=== PATIENT | male | born 1935 | race Caucasian/White ===

== ENCOUNTER 2018-04-16 11:30 | Inpatient (IN) ==
[2018-04-16 12:35] LABS: Bilirubin,Urine Negative (Negative); Blood,Urine Negative (Negative); Clarity,Urine Clear (Clear); Color,Urine Yellow (Yellow); Glucose,Urine (UA) Normal (Normal); Ketones,Urine Negative (Negative); Leukocyte Esterase,Urine Negative (Negative); Nitrite,Urine Negative (Negative); Protein,Urine Negative (Neg-Trace); Specific Gravity,Urine 1.009 (1.010-1.025); Urobilinogen,Urine Normal (Normal)
[2018-04-16 12:42] LABS: Basophils % 0.5 %; Eosinophils # 0.6 K/mcL (0.0-0.6); Eosinophils % 10.1 %; Hematocrit 41.2 % (37.5-50.1); Hemoglobin 13.7 g/dL (12.9-16.9); Immature Granulocytes % 0.2 % (0-4); Lymphocytes # 1.2 K/mcL (0.6-4.6); Lymphocytes % 20.5 %; Mean Corpuscular HGB Conc 33.3 g/dL (31.6-35.5); Mean Corpuscular Hemoglobin 30.1 pg (28.0-33.3); Mean Corpuscular Volume 90.5 fL (83.0-100.0); Monocytes # 0.5 K/mcL (0.0-1.3); Monocytes % 8.5 %; Neutrophils # 3.4 K/mcL (1.6-8.9); Platelet Count 177 K/mcL (140-400); Red Blood Count 4.55 M/mcL (4.19-5.50); Red Cell Distribution Width 12.8 % (11.5-14.5); Segmented Neutrophils % 60.2 %
[2018-04-16 13:00] LABS: Alanine Aminotransferase 15 Units/L (7-52); Albumin 4.4 g/dL (3.5-5.7); Albumin/Globulin Ratio 1.8 (1.1-2.2); Alkaline Phosphatase 40 Units/L (34-104); Aspartate Amino Transferase 19 Units/L (13-39); BUN/Creatinine Ratio 13 (6-26); Bilirubin,Direct 0.1 mg/dL (0.0-0.2); Bilirubin,Indirect 0.4 mg/dL (0.0-1.2); Bilirubin,Total 0.5 mg/dL (0.3-1.0); Blood Urea Nitrogen 15 mg/dL (8-23); Calcium 9.5 mg/dL (8.6-10.3); Carbon Dioxide 28 mEq/L (23-29); Chloride 105 mEq/L (98-107); Globulin 2.5 g/dL (2.4-3.5); Glucose 126 mg/dL (70-105); Osmolality,Calculated 288 (280-300); Sodium 138 mEq/L (136-145); Total Protein 6.9 g/dL (6.4-8.9); eGFR For Non-African Americans 58 (> 60)
[2018-04-16 13:11] LABS: Lipase 835 Units/L (11-82)
[2018-04-16] MEDS ORDERED: *HR* FentaNYL (PF) 100 MCG/2 ML VIAL IVP ONE (13:35)
[2018-04-16] MEDS ORDERED: Ondansetron 4 MG/2 ML VIAL IVP ONE (13:36)
[2018-04-16] MEDS ORDERED: 0.9 % Sodium Chloride 1,000 ML IVC ONE (13:36)
--- NOTE | 2018-04-16 14:39 | Emergency Department Note ---
Disposition Clinical Impression: Pancreatitis Disposition: Admitted As Inpatient Condition: Fair Referrals: Mayito Serrano MD [Primary Care Provider] - Forms: ED Satisfaction Letter, Work/School Release General Adult HPI - General Chief complaint: ED Abdominal Pain Stated complaint: "pancreaititis" Time Seen by Provider: 04/16/18 12:22 Source: patient Mode of arrival: ambulatory Limitations: no limitations Nursing Notes Reviewed: Yes Vital Signs Reviewed: Yes - History of Present Illness HPI Narrative: 82-year-old male presents to the emergency room for abdominal pain. Patient was just admitted recently for pancreatitis. Patient had undergone abdominal MRI that did not reveal any obstructive lesions but more so just findings consistent with acute pancreatitis. Patient had been taking tramadol and when necessary Vicodin that he was getting from his . He states his pain is gotten worse. He is able to drink liquids and eat some food but has a decreased appetite. He denies any diarrhea but does admit to some constipation from the narcotic medication that is been taking for pain. He denies fevers. No other complaints at this time. Pain Scale: 7 - Related Data Home Medications Medication Instructions Recorded Confirmed ALPRAZolam [Xanax 0.5 MG Tablet] 0.25 mg PO 3XW PRN 04/03/18 04/03/18 Amlodipine Besylate 40 mg PO DAILY 04/03/18 Aspirin [Lo-Dose Aspirin EC] 81 mg PO QPM 04/03/18 04/03/18 Atenolol [Tenormin] 50 mg PO BID 04/03/18 04/03/18 Atorvastatin [Lipitor] 40 mg PO DAILY 04/03/18 04/03/18 Gabapentin [Neurontin] 400 mg PO HS 04/03/18 04/03/18 Loratadine [Claritin] 10 mg PO DAILY 04/03/18 04/03/18 Losartan Potassium [Cozaar] 50 mg PO DAILY 04/03/18 04/03/18 Omeprazole [PriLOSEC] 40 mg PO DAILY 04/03/18 04/03/18 hydroCHLOROthiazide 25 mg PO DAILY 04/03/18 04/03/18 [Hydrochlorothiazide] Allergies Allergy/AdvReac Type Severity Reaction Status Date / Time No Known Allergies Allergy Verified 04/02/18 23:37 All systems ED: reviewed and negative except as stated. Constitutional: Reports: as per HPI. Denies: fever Eyes: Reports: as per HPI ENT ED: Reports: as per HPI Cardiovascular: Reports: as per HPI. Denies: chest pain Respiratory: Denies: cough Gastrointestinal: Reports: abdominal pain, constipation Genitourinary: Reports: as per HPI Musculoskeletal: Reports: as per HPI Integumentary: Reports: as per HPI Neurological: Reports: as per HPI Psychiatric: Reports: as per HPI Endocrine: Reports: as per HPI Hematological/Lymphatic: Reports: as per HPI Allergic/Immunologic: Reports: as per HPI Past Medical History - Past Medical History Medical history: Reports: hyperlipidemia, hypertension, myocardial infarction Psychiatric history: Reports: no psych history - Social History Smoking Status: Never smoker Smokeless Tobacco Status: No Alcohol use: Reports: none Drug use: Reports: none Physical Exam - General General appearance: alert - Head Head exam: atraumatic, normocephalic - Eye Eye exam: Present: normal appearance - Neck Neck exam: Present: normal inspection - Chest Chest inspection: Present: normal inspection - Respiratory Respiratory exam: Present: normal lung sounds bilaterally - Cardiovascular Cardiovascular exam: Present: regular rate, normal rhythm, normal heart sounds - Abdominal Exam Abdominal exam: Present: soft, tenderness (Patient has tenderness in the epigastric region. Positive for guarding.) - Extremities Exam Extremities exam: Present: normal inspection - Expanded Lower Extremity Exam Hip/Pelvis exam: Present: normal inspection - Neurological Exam Neurological exam: Present: alert, oriented X3 - Psychiatric Psychiatric exam: Present: normal affect - Skin Skin exam: Present: warm, dry, intact Course Vital Signs Temperature 97.5 F L 04/16/18 11:41 Pulse Rate 56 04/16/18 11:41 Respiratory Rate 18 04/16/18 11:41 Blood Pressure 178/83 04/16/18 11:41 O2 Sat by Pulse Oximetry 100 04/16/18 11:41 Temperature 97.5 F L 04/16/18 12:10 Pulse Rate 52 04/16/18 13:52 Respiratory Rate 18 04/16/18 12:10 Blood Pressure 137/77 04/16/18 13:52 O2 Sat by Pulse Oximetry 98 04/16/18 13:52 Oxygen Delivery Oxygen Delivery Room Air Medical Decision Making - MDM Narrative Medical decision making narrative: I reviewed the patient's recent CT imaging and abdominal MRI. - Medical Records Medical records reviewed: Yes I reviewed the patient's medical records. - Lab Data Lab results reviewed: Yes I reviewed the patient's lab results. Result diagrams: 04/16/18 12:25 04/16/18 12:25 Lab Results 04/16/18 04/16/18 04/16/18 Range/Units 12:10 12:25 12:25 WBC 5.7 (4.3-11.1) K/mcL RBC 4.55 (4.19-5.50) M/mcL Hgb 13.7 (12.9-16.9) g/dL Hct 41.2 (37.5-50.1) % MCV 90.5 (83.0-100.0) fL MCH 30.1 (28.0-33.3) pg MCHC 33.3 (31.6-35.5) g/dL RDW 12.8 (11.5-14.5) % Plt Count 177 (140-400) K/mcL MPV 10.0 (9.4-12.4) fL Immature Gran % 0.2 (0-4) % Seg Neutrophils % 60.2 % Lymphocytes % 20.5 % Monocytes % 8.5 % Eosinophils % 10.1 % Basophils % 0.5 % Neutrophils # 3.4 (1.6-8.9) K/mcL Lymphocytes # 1.2 (0.6-4.6) K/mcL Monocytes # 0.5 (0.0-1.3) K/mcL Eosinophils # 0.6 (0.0-0.6) K/mcL Basophils # 0.0 (0.0-0.2) K/mcL Sodium 138 (136-145) mEq/L Potassium 4.0 (3.5-5.1) mEq/L Chloride 105 (98-107) mEq/L Carbon Dioxide 28 (23-29) mEq/L BUN 15 (8-23) mg/dL Creatinine 1.20 (0.70-1.30) mg/dL Est GFR ( Amer) > 60 (> 60) Est GFR (Non-Af Amer) 58 L (> 60) BUN/Creatinine Ratio 13 (6-26) Glucose 126 H (70-105) mg/dL Calculated Osmolality 288 (280-300) Calcium 9.5 (8.6-10.3) mg/dL Total Bilirubin 0.5 (0.3-1.0) mg/dL Direct Bilirubin 0.1 (0.0-0.2) mg/dL Indirect Bilirubin 0.4 (0.0-1.2) mg/dL AST 19 (13-39) Units/L ALT 15 (7-52) Units/L Alkaline Phosphatase 40 (34-104) Units/L Serum Total Protein 6.9 (6.4-8.9) g/dL Albumin 4.4 (3.5-5.7) g/dL Globulin 2.5 (2.4-3.5) g/dL Albumin/Globulin Ratio 1.8 (1.1-2.2) Lipase 835 H (11-82) Units/L Urine Color Yellow (Yellow) Urine Clarity Clear (Clear) Urine pH 6.0 (5.0-8.0) pH Units Ur Specific [place] 1.009 L (1.010-1.025) Urine Protein Negative (Neg-Trace) mg/dL Urine Glucose (UA) Normal (Normal) mg/dL Urine Ketones Negative (Negative) mg/dL Urine Blood Negative (Negative) Urine Nitrite Negative (Negative) Urine Bilirubin Negative (Negative) Urine Urobilinogen Normal (Normal) mg/dL Ur Leukocyte Esterase Negative (Negative) Ur Culture Indicated? NO (NO)
--- NOTE | 2018-04-16 15:58 | Event Note ---
Date of Encounter: 04/16/18 Time of Encounter: 16:30 to serve as attestation pending completion of resident H&P documentation I examined this patient and my medical decision-making was reviewed with the Resident Physician Dr Mccord 04/16/18. I agree with the documented findings, disposition and treatment plan as described except to the extent set forth below. Mr Nova has pmhx HTN, HLD, CAD, aortic root dilatation and recent dc 04/06/18 for first episode acute pancreatitis. He presented to ED today with continued abd pain refractory to outpt pain medication and decreased appetite. awake, family at bedside. comfortable appearing. epigastric pain with radiation to ruq and luq, no radiation to back. no nausea or emesis. has been able to eat/drink. dneies fevers, chills. had no bm for 3 days and then had one yesterday that was brown and soft. 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
--- NOTE | 2018-04-16 16:06 | Internal Med History&Physical ---
Date of Encounter: 04/16/18 Time of Encounter: 16:06 Internal Medicine - H&P: HPI History of present illness: Mr. Nova is a 82 year old male Past Med Surg Social Fam HX - Past Medical History Medical history: hyperlipidemia, hypertension, myocardial infarction Psychiatric history: no psych history - Social History Smoking Status: Never smoker Smokeless Tobacco Status: No Alcohol use: none Drug use: none - Family History Mother Hx Family Cardiac Disorders: Yes Father Hx Family Cardiac Disorders: Yes Hx Family Neurologic Disorders: Yes (stroke) Internal Medicine - H&P: Meds ALPRAZolam [Xanax 0.5 MG Tablet] 0.25 mg PO 3XW PRN 04/03/18 [History] Amlodipine Besylate 40 mg PO DAILY 04/03/18 [History] Aspirin [Lo-Dose Aspirin EC] 81 mg PO QPM 04/03/18 [History] Atenolol [Tenormin] 50 mg PO BID 04/03/18 [History] Atorvastatin [Lipitor] 40 mg PO DAILY 04/03/18 [History] Gabapentin [Neurontin] 400 mg PO HS 04/03/18 [History] Loratadine [Claritin] 10 mg PO DAILY 04/03/18 [History] Losartan Potassium [Cozaar] 50 mg PO DAILY 04/03/18 [History] Omeprazole [PriLOSEC] 40 mg PO DAILY 04/03/18 [History] hydroCHLOROthiazide [Hydrochlorothiazide] 25 mg PO DAILY 04/03/18 [History] Allergy/AdvReac Type Severity Reaction Status Date / Time No Known Allergies Allergy Verified 04/02/18 23:37 All Systems PM: A 10-system review of systems was performed and is negative for pertinent findings except as documented above in the HPI. - Constitutional Vitals: Temp Pulse Resp BP Pulse Ox 97.5 F L 51 18 125/71 100 04/16/18 12:10 04/16/18 15:29 04/16/18 12:10 04/16/18 15:29 04/16/18 15:29 Internal Med - H&P Results - Labs CBC & Chem 7: 04/16/18 12:25 04/16/18 12:25 Labs: Short CBC 04/16/18 Range/Units 12:25 WBC 5.7 (4.3-11.1) K/mcL Hgb 13.7 (12.9-16.9) g/dL Hct 41.2 (37.5-50.1) % Plt Count 177 (140-400) K/mcL Neutrophils # 3.4 (1.6-8.9) K/mcL BMP 04/16/18 12:25 Sodium 138 Potassium 4.0 Chloride 105 Carbon Dioxide 28 BUN 15 Creatinine 1.20 Glucose 126 H Calcium 9.5 Liver Function 04/16/18 Range/Units 12:25 Total Bilirubin 0.5 (0.3-1.0) mg/dL Direct Bilirubin 0.1 (0.0-0.2) mg/dL AST 19 (13-39) Units/L ALT 15 (7-52) Units/L Alkaline Phosphatase 40 (34-104) Units/L Albumin 4.4 (3.5-5.7) g/dL Urine 04/16/18 Range/Units 12:10 Urine Color Yellow (Yellow) Urine Clarity Clear (Clear) Urine pH 6.0 (5.0-8.0) pH Units Ur Specific [place] 1.009 L (1.010-1.025) Urine Protein Negative (Neg-Trace) mg/dL Urine Glucose (UA) Normal (Normal) mg/dL - Time Spent With Patient Total time spent is greater than 50% in coordination of care (as documented) at patient's floor/unit and/or counseling patient:
[2018-04-16] MEDS ORDERED: OXYCODONE Oral CONC 10 MG/0.5 ML ORAL.SYG SL ONE (16:35)
--- NOTE | 2018-04-16 16:36 | Internal Med History&Physical ---
<Marija Oseguera - Last Filed: 04/16/18 16:52> Date of Encounter: 04/16/18 Internal Medicine - H&P: HPI History of present illness: Mr. Nova is a 82 year old male Past Med Surg Social Fam HX - Past Surgical History Surgical History: cholecystectomy Internal Medicine - H&P: Meds ALPRAZolam [Xanax 0.5 MG Tablet] 0.5 mg PO PRN PRN 04/03/18 [History] Amlodipine Besylate 40 mg PO DAILY 04/03/18 [History] Aspirin [Lo-Dose Aspirin EC] 81 mg PO QPM 04/03/18 [History] Atenolol [Tenormin] 50 mg PO BID 04/03/18 [History] Atorvastatin [Lipitor] 40 mg PO DAILY 04/03/18 [History] Gabapentin [Neurontin] 400 mg PO HS 04/03/18 [History] Loratadine [Claritin] 10 mg PO DAILY 04/03/18 [History] Losartan Potassium [Cozaar] 100 mg PO DAILY 04/03/18 [History] Allergy/AdvReac Type Severity Reaction Status Date / Time No Known Allergies Allergy Verified 04/02/18 23:37 All Systems PM: A 10-system review of systems was performed and is negative for pertinent findings except as documented above in the HPI. - Constitutional Vitals: Temp Pulse Resp BP Pulse Ox 97.5 F L 51 18 125/71 100 04/16/18 12:10 04/16/18 15:29 04/16/18 12:10 04/16/18 15:29 04/16/18 15:29 Internal Med - H&P Results - Labs CBC & Chem 7: 04/16/18 12:25 04/16/18 12:25 Labs: Short CBC 04/16/18 Range/Units 12:25 WBC 5.7 (4.3-11.1) K/mcL Hgb 13.7 (12.9-16.9) g/dL Hct 41.2 (37.5-50.1) % Plt Count 177 (140-400) K/mcL Neutrophils # 3.4 (1.6-8.9) K/mcL BMP 04/16/18 12:25 Sodium 138 Potassium 4.0 Chloride 105 Carbon Dioxide 28 BUN 15 Creatinine 1.20 Glucose 126 H Calcium 9.5 Liver Function 04/16/18 Range/Units 12:25 Total Bilirubin 0.5 (0.3-1.0) mg/dL Direct Bilirubin 0.1 (0.0-0.2) mg/dL AST 19 (13-39) Units/L ALT 15 (7-52) Units/L Alkaline Phosphatase 40 (34-104) Units/L Albumin 4.4 (3.5-5.7) g/dL Urine 04/16/18 Range/Units 12:10 Urine Color Yellow (Yellow) Urine Clarity Clear (Clear) Urine pH 6.0 (5.0-8.0) pH Units Ur Specific [place] 1.009 L (1.010-1.025) Urine Protein Negative (Neg-Trace) mg/dL Urine Glucose (UA) Normal (Normal) mg/dL - Time Spent With Patient Total time spent is greater than 50% in coordination of care (as documented) at patient's floor/unit and/or counseling patient: - Attending Attestation I examined this patient and my medical decision-making was reviewed with the Resident Physician Dr Mccord 04/16/18. I agree with the documented findings, disposition and treatment plan as described except to the extent set forth below. Mr Nova has pmhx HTN, HLD, CAD, aortic root dilatation and recent dc 04/06/18 for first episode acute pancreatitis. He presented to ED today with continued abd pain refractory to outpt pain medication and decreased appetite. awake, family at bedside. comfortable appearing. epigastric pain with radiation to ruq and luq, no radiation to back. no nausea or emesis. has been able to eat/drink. dneies fevers, chills. had no bm for 3 days and then had one yesterday that was brown and soft. 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 and no fluid collection or stones/obstruction He denied etoh use, tgs were in 120-130s, celine was neg and GI followed -IVF boluses, npo except meds, prn pain control, stop home hctz, repeat imaging and will consider GI consult pending work up Constipation with recent opiate use- no nausea/emesis and able to eat and drink -bowel regimen HTN- hold home hctz and cont remainder home regimen, monitor bps and will adjust as needed, prn pain control CAD- cont home asa, statin, bb, arb further diagnoses and plan as noted by resident <Aga Mccord N - Last Filed: 04/16/18 18:29> Date of Encounter: 04/16/18 Time of Encounter: 16:36 Internal Medicine - H&P: HPI Chief complaint: Abdominal pain Admitted From: Emergency Dept History of present illness: Mr. Nova is a 82 year old male with a history of hypertension, hyperlipidemia, and coronary artery disease who presented to the ED complaining of abdominal pain. Patient was recently hospitalized for similar complaints, with discharge from [facility] on 04/06/2018. During that admission, he was found to have acute pancreatitis secondary to an undetermined etiology. Patient states that since going home, his pain has persisted, despite opioid analgesics. He rates his current pain to be 8/10, and states that the pain only improved to 7/10 after receiving analgesics in the ED. Patient reports that his pain is normally about 8/10 in severity. He states that his pain is mainly epigastric in location, with lateral radiation. He denies any aggravating or alleviating factors. Patient also reports recent constipation secondary to use of opioid analgesics. He did have an bowel movement while in the ED, with his last bowel movement having been approximately 3 days prior. He states that he did not have to take a laxative in order to this bowel movement today. He denies any nausea or vomiting. Patient has been able to tolerate some oral intake while at home. He denies any fevers, chills, or other systemic signs of infection. Review systems is otherwise negative. Past Med Surg Social Fam HX - Past Medical History Medical history: hyperlipidemia, hypertension, myocardial infarction Psychiatric history: no psych history - Social History Smoking Status: Never smoker Smokeless Tobacco Status: No Alcohol use: none Drug use: none - Family History Mother Hx Family Cardiac Disorders: Yes Father Hx Family Cardiac Disorders: Yes Hx Family Neurologic Disorders: Yes (stroke) All Systems PM: A 10-system review of systems was performed and is negative for pertinent findings except as documented above in the HPI. - Constitutional Constitutional: anorexia, no chills, no fever(s) - Cardiovascular Cardiovascular ROS IM: no chest pain, no diaphoresis, no dyspnea - Respiratory Respiratory: no cough, no dyspnea - Gastrointestinal Gastrointestinal: abdominal pain, change in stool character, constipation, no diarrhea, no nausea, no vomiting - Constitutional Vitals: Temp Pulse Resp BP Pulse Ox 97.5 F L 51 18 125/71 100 04/16/18 12:10 04/16/18 15:29 04/16/18 12:10 04/16/18 15:29 04/16/18 15:29 Exam: GENERAL: Pleasant adult male in mild distress secondary to abdominal pain. HEENT: Atraumatic and normocephalic. CARDIOVASCULAR: Regular rate and rhythm. S1 and S2 present. No murmurs, gallops, or rubs. RESPIRATORY: Clear to auscultation bilaterally. Chest rises and falls symmetrically with respiration. No accessory muscle use noted. GASTROINTESTINAL: Active bowel sounds 4 quadrants. Abdomen is soft and nondistended. Patient is tender to palpation in epigastric area. EXTREMITIES: No clubbing, cyanosis, or edema. SKIN: Warm, dry, and intact. NEUROLOGIC: Alert and oriented 3. Patient is cooperative with exam and answers questions appropriately. No apparent focal deficits. PSYCHIATRIC: Appropriate mood and affect. Internal Med - H&P Results - Labs CBC & Chem 7: 04/16/18 12:25 04/16/18 12:25 Labs: Short CBC 04/16/18 Range/Units 12:25 WBC 5.7 (4.3-11.1) K/mcL Hgb 13.7 (12.9-16.9) g/dL Hct 41.2 (37.5-50.1) % Plt Count 177 (140-400) K/mcL Neutrophils # 3.4 (1.6-8.9) K/mcL BMP 04/16/18 12:25 Sodium 138 Potassium 4.0 Chloride 105 Carbon Dioxide 28 BUN 15 Creatinine 1.20 Glucose 126 H Calcium 9.5 Liver Function 04/16/18 Range/Units 12:25 Total Bilirubin 0.5 (0.3-1.0) mg/dL Direct Bilirubin 0.1 (0.0-0.2) mg/dL AST 19 (13-39) Units/L ALT 15 (7-52) Units/L Alkaline Phosphatase 40 (34-104) Units/L Albumin 4.4 (3.5-5.7) g/dL Urine 04/16/18 Range/Units 12:10 Urine Color Yellow (Yellow) Urine Clarity Clear (Clear) Urine pH 6.0 (5.0-8.0) pH Units Ur Specific [place] 1.009 L (1.010-1.025) Urine Protein Negative (Neg-Trace) mg/dL Urine Glucose (UA) Normal (Normal) mg/dL - Assessment and plan (1) Pancreatitis Current Visit: Yes Status: Acute Assessment and plan: Patient was recently discharged from the hospital for similar complaints. CT of the abdomen and pelvis performed on 04/03/2018 demonstrated mild pancreatic inflammatory stranding, suggesting acute interstitial edematous pancreatitis. At that time, no drainable fluid collection or duct dilatation was noted. Subsequent MRI of the abdomen demonstrated diffuse irregularity of the pancreatic duct likely related to pancreatitis. No evidence of pancreatic ductal obstruction or stone was noted. Patient was also noted to have multiple small cysts measuring 2-4 mm throughout the pancreas commuting to multiple side branch ducts suggesting numerous pancreatic sidebranch IPMNs. - Repeat CT abdomen/pelvis pending - IVF: 1L LR over 2 hours, then maintenance fluids of 125mL/hr - NPO except medications - Pain control with opioid analgesics - Consider GI consult based on results of repeat CT imaging studies - Obtain CMP, amylase, and lipase with morning laboratory studies Qualifiers: Chronicity: acute Pancreatitis type: unspecified pancreatitis type Acute pancreatitis complication: unspecified Qualified Code(s): K85.90 - Acute pancreatitis without necrosis or infection, unspecified (2) Constipation due to opioid therapy Current Visit: Yes Status: Acute Assessment and plan: - Colace 100mg BID - Will add stimulant laxative if patient has recurrent constipation (3) Hypertension Current Visit: No Status: Chronic Assessment and plan: - Continue home medications of losartan, amlodipine, and atenolol. Qualifiers: Hypertension type: unspecified Qualified Code(s): I10 - Essential (primary) hypertension (4) CAD (coronary artery disease) Current Visit: Yes Status: Acute Assessment and plan: - Continue home medications of aspirin, atorvastatin, atenolol, and losartan. Qualifiers: Coronary Disease-Associated Artery/Lesion type: unspecified vessel or lesion type [place] vs. transplanted heart: [place] heart Associated angina: angina p resence unspecified Qualified Code(s): I25.10 - Atherosclerotic heart disease of [place] coronary artery without angina pectoris (5) Hyperlipidemia Current Visit: No Status: Chronic Assessment and plan: - Continue atorvastatin 40mg daily. Qualifiers: Hyperlipidemia type: unspecified Qualified Code(s): E78.5 - Hyperlipidemia, unspecified (6) DVT prophylaxis Current Visit: No Status: Acute Assessment and plan: - Heparin 5000units SQ - Time Spent With Patient Total time spent is greater than 50% in coordination of care (as documented) at patient's floor/unit and/or counseling patient:
[2018-04-16] MEDS ORDERED: Isovue-370 500 ML BOTTLE IVP ONE (17:42)
[2018-04-16] MEDS ORDERED: Ringers Solution, Lactated 1,000 ML IVC ONE (18:10)
[2018-04-16] MEDS ORDERED: Acetaminophen 325 MG TABLET PO PRN (18:12)
[2018-04-16] MEDS ORDERED: Naloxone 0.4 MG/ML INJ IVP PRN (18:12)
[2018-04-16] MEDS ORDERED: *HR* OxyCODONE Immed Rel 5 MG TABLET PO PRN (18:14)
[2018-04-16] MEDS ORDERED: *HR* OxyCODONE Immed Rel 15 MG TABLET PO PRN (19:31)
[2018-04-16] MEDS ORDERED: *HR* OxyCODONE Immed Rel 15 MG TABLET PO SCH (20:00)
[2018-04-16] MEDS: *HR* Heparin 5,000 UNIT/ML VIAL SQ SCH (20:58)
[2018-04-16] MEDS: Ringers Solution, Lactated 1,000 ML IVC SCH (21:00)
[2018-04-16] MEDS ORDERED: Melatonin 3 MG TABLET PO ONE (23:40)
[2018-04-16] MEDS ORDERED: Acetaminophen IV 500 MG/50 ML INFUS..BTL IVPB ONE (23:54)
[2018-04-17] MEDS ORDERED: OXYCODONE Oral CONC 10 MG/0.5 ML ORAL.SYG SL ONE (03:27)
[2018-04-17] MEDS: Ringers Solution, Lactated 1,000 ML IVC SCH ×3 (04:40→22:18)
[2018-04-17 04:59] LABS: Basophils % 0.4 %; Eosinophils # 0.6 K/mcL (0.0-0.6); Eosinophils % 10.9 %; Hemoglobin 11.6 g/dL (12.9-16.9); Immature Granulocytes % 0.2 % (0-4); Lymphocytes # 1.6 K/mcL (0.6-4.6); Lymphocytes % 28.6 %; Mean Corpuscular HGB Conc 34.1 g/dL (31.6-35.5); Mean Corpuscular Hemoglobin 30.4 pg (28.0-33.3); Mean Corpuscular Volume 89.2 fL (83.0-100.0); Mean Platelet Volume 10.3 fL (9.4-12.4); Monocytes # 0.5 K/mcL (0.0-1.3); Neutrophils # 2.9 K/mcL (1.6-8.9); Platelet Count 123 K/mcL (140-400); Red Blood Count 3.81 M/mcL (4.19-5.50); Red Cell Distribution Width 12.9 % (11.5-14.5); Segmented Neutrophils % 51.9 %
[2018-04-17] MEDS: *HR* Heparin 5,000 UNIT/ML VIAL SQ SCH ×3 (05:03→21:08)
[2018-04-17] MEDS ORDERED: Ertapenem 1,000 MG in 0.9 % Sodium Chloride Mini Bag 100 ML IVPB SCH ×2 (06:00→09:00)
[2018-04-17 08:46] LABS: Alanine Aminotransferase 12 Units/L (7-52); Albumin 3.8 g/dL (3.5-5.7); Albumin/Globulin Ratio 1.8 (1.1-2.2); Alkaline Phosphatase 35 Units/L (34-104); Amylase 80 Units/L (29-103); Aspartate Amino Transferase 16 Units/L (13-39); BUN/Creatinine Ratio 12 (6-26); Bilirubin,Total 0.5 mg/dL (0.3-1.0); Blood Urea Nitrogen 12 mg/dL (8-23); Calcium 8.8 mg/dL (8.6-10.3); Carbon Dioxide 28 mEq/L (23-29); Chloride 108 mEq/L (98-107); Globulin 2.1 g/dL (2.4-3.5); Glucose 94 mg/dL (70-105); Lipase 487 Units/L (11-82); Osmolality,Calculated 292 (280-300); Potassium 3.8 mEq/L (3.5-5.1); Sodium 141 mEq/L (136-145); Total Protein 5.9 g/dL (6.4-8.9); eGFR For Non-African Americans > 60 (> 60)
[2018-04-17] MEDS ORDERED: AMLODIPINE BESYLATE PO SCH (09:00)
--- NOTE | 2018-04-17 09:08 | Internal Med Progress Note ---
<Marija Oseguera - Last Filed: 04/17/18 13:42> Hospitalist Progress Note - Encounter Date of Encounter: 04/17/18 - Exam Vitals: Temp Pulse Resp BP Pulse Ox 97.5 F L 48 16 176/83 97 04/17/18 06:49 04/17/18 06:49 04/17/18 06:49 04/17/18 06:49 04/17/18 06:49 - Assessment and Plan (1) Pancreatitis Current Visit: Yes Status: Acute (2) Hypertension Current Visit: Yes Status: Chronic (3) Hyperlipidemia Current Visit: Yes Status: Chronic (4) DVT prophylaxis Current Visit: Yes Status: Acute (5) Constipation due to opioid therapy Current Visit: Yes Status: Acute (6) CAD (coronary artery disease) Current Visit: Yes Status: Acute - Time Spent with Patient Total time spent is greater than 50% in coordination of care (as documented) at patient's floor/unit and/or counseling patient: Internal Medicine: Result - Labs CBC & Chem 7: 04/17/18 04:09 04/17/18 04:09 Labs: Short CBC 04/17/18 Range/Units 04:09 WBC 5.6 (4.3-11.1) K/mcL Hgb 11.6 L D (12.9-16.9) g/dL Hct 34.0 L (37.5-50.1) % Plt Count 123 L (140-400) K/mcL Neutrophils # 2.9 (1.6-8.9) K/mcL BMP 04/17/18 04:09 Sodium 141 Potassium 3.8 Chloride 108 H Carbon Dioxide 28 BUN 12 Creatinine 0.99 Glucose 94 Calcium 8.8 Liver Function 04/17/18 Range/Units 04:09 Total Bilirubin 0.5 (0.3-1.0) mg/dL AST 16 (13-39) Units/L ALT 12 (7-52) Units/L Alkaline Phosphatase 35 (34-104) Units/L Albumin 3.8 (3.5-5.7) g/dL - Impressions Impressions Abdomen/Pelvis CT 04/16/18 17:42 IMPRESSION: 1. Developing hypoattenuation pancreatic head concerning for products of necrosis following acute pancreatitis. Developing pseudocysts is a consideration as well. 2. Persistent findings of acute pancreatitis predominantly about the pancreatic head and neck. 3. Mild intra and extra extrahepatic bile duct dilatation status post cholecystectomy typical of reservoir effect. 4. Diverticulosis coli without CT evidence of acute diverticulitis. D/ / Tk Forrest / Tk Forrest Interpreting Provider: Tk Forrest Consult Discharge Plan - Plan Referrals: Allie Raymond MD [Partnered Physician] - 05/23/18 9:50 am Marianne Mccurdy MD [Partnered Physician] - 05/31/18 9:10 am Mayito Serrano MD [Primary Care Provider] - 04/22/18 1:30 pm () West Thompson MD [Partnered Physician] - 05/13/18 3:30 pm - Attending Attestation The history, physical exam, and medical decision making was performed by medical student Barby either while I was physically present and actively involved or I personally re-performed the exam and medical decision making. I have verified the accuracy of the medical student's documentation with regards to the history, physical exam findings, and medical decision making. Mr Nova has pmhx HTN, HLD, CAD, aortic root dilatation and recent dc 04/06/18 for first episode acute pancreatitis. He presented to ED today with continued abd pain refractory to outpt pain me dication and decreased appetite. awake, had pain consistently throughout the night despite meds. epigastric region and cont radiation to bl UQs. no cp, sob, fevers or chills. bm yesterday, no diarrhea, hematochezia, melena. no nausea or emesis. updated to CT results and plan. no family at bedside. 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 and no fluid collection or stones/obstruction He denied etoh use, tgs were in 120-130s, celine was neg and GI followed -s/p IVF boluses, cont MIVFs -CT scan with findings concerning for necrosis vs developing pseudocyst -lipase down trending now 400s -cont npo except meds, increase prn pain control, GI consultation - rec is for outpt EUS, clears when pain improves, if pain worsens at that time would consider ngt-our team also spoke with GI whom noted that he does not require abx- stop ertapenem Constipation with recent opiate use, last bm 04/16- -colace with opiates and laxative prn Drop in Hgb to 11.6- is s/p aggressive IVFs and without active bleeding at this time, cont to monitor, hemodynamically stable HTN- hold home hctz due to pancreatitis and home atenolol due to bradycardia, cont remainder home regimen, monitor bps and will adjust as needed, prn pain control with dosing increased for uncontrolled pain CAD- cont home asa, statin, arb, and BB as bp permits <Omar Dior - Last Filed: 04/17/18 14:45> Hospitalist Progress Note - Encounter Date of Encounter: 04/17/18 Time of Encounter: 08:00 - Subjective Interval History: Mr. Nova is a 82yo male with a history of HTN, HLD, CAD, aortic root dilation, and recent acute pancreatitis requiring hospitalization, who presented to the ED on 04/16/18 with abdominal pain refractory to OTC pain medication and decreased appetite. He came to the ED on 04/04/18 complaining of similar epigastric pain, and was diagnosed with acute pancreatitis and discharged on 04/06/18 because of improving pain and pancreatic enzymes. He is a never smoker and denies alcohol use. He was an IV bolus of normal 0.9% saline and started on IV lactated ringers solution and IV ertapenem. He was given fentanyl and oxycodone for his abdominal pain. CT of the abdomin/pelvis was ordered He was seen at bedside today. Appearing comfortable. He complained he wasn't able to sleep very well last night because of his abdominal pain. He is slightly nauseous today and rates the pain as 6/10 today and localizes most of the pain as in the epigastric area w/ lateral radiation. He denies any fever, chills, vomiting, diarrhea, dysuria, hematuria, or hematochezia. He states he has urinated a few times, he admits to a bowel movement in the ED, but denies any bowel movements since his admission. - Exam Vitals: Temp Pulse Resp BP Pulse Ox 97.5 F L 48 16 176/83 97 04/17/18 06:49 04/17/18 06:49 04/17/18 06:49 04/17/18 06:49 04/17/18 06:49 Exam: General: Well-appearing male lying comfortably in bed in no acute distress. Skin: Warm and supple. Head: Normocephalic, atrauma EENT: Moist mucous membranes. No conjunctivae pallor. Neck: No JVD. Trachea midline. Chest: CTA bilaterally. No wheezes, rhonchi, or rales. Normal thoracic expansion. Heart: Normal S1 & S2; rhythmic. No rubs, gallops, or murmurs. Abdomen: Moderate epigastric tenderness with guarding. No tenderness in other quadrants. No distension. No hepatomegaly or splenomegaly. Active bowel sounds x4. Extremities: No clubbing, cyanosis or edema. No calf tenderness. Normal distal pulses. Normal capillary refill Neurological: AAOx3. No focal deficits. - Assessment and Plan (1) Acute pancreatitis Current Visit: Yes Status: Acute Assessment and Plan: Pt with history of recent bout of acute pancreatitis presents with epigastric pain and nausea Pt states pain has improved, but still says pain is 6/10 and localized to the epigastrium. He is afebrile and hemodynamically stable Lipase has decreased from yesterday (835--> 487), amylase is normal (80) Pt meets 1 point of Ball criteria. (LDH not measured) CT abdomen/pelvis showed hypoattenuation of the pancreatic head concerning for products of necrosis following acute pancreatitis possible pseudocysts is a consideration as well. Persistent findings of acute pancreatitis predominantly about the pancreatic head and neck. Gastroenterology has been consulted, any recommendations would be appreciated Continue IV LR D/c ertapenem Continue PRN Oxycodone for abdominal pain. Continue NPO diet GI recommends EUS follow-up outpatient once acute inflammation resolves (2) Hypertension Current Visit: Yes Status: Chronic Assessment and Plan: - Severe abdominal pain likely contributes to increase in BP - Continue home meds of losartan - Atenolol held d/t bradycardia (3) Hyperlipidemia Current Visit: Yes Status: Chronic Assessment and Plan: - Continue atorvastrin 40mg daily (4) Constipation due to opioid therapy Current Visit: Yes Status: Acute Assessment and Plan: - Has not had bowel movement since admission - Colace 100mg BID - Will add stimulant laxative if patient has recurrent constipation (5) CAD (coronary artery disease) Current Visit: Yes Status: Acute Assessment and Plan: - Continue home medications of aspirin, atorvastatin, and losartan. - Atenolol held d/t bradycardia (6) DVT prophylaxis Current Visit: Yes Status: Acute Assessment and Plan: SQ heparin given DVT Prophylaxis: SQ heparin - Time Spent with Patient Total time spent is greater than 50% in coordination of care (as documented) at patient's floor/unit and/or counseling patient: Internal Medicine: Result - Labs CBC & Chem 7: 04/17/18 04:09 04/17/18 04:09 Labs: Short CBC 04/16/18 04/17/18 Range/Units 12:25 04:09 WBC 5.7 5.6 (4.3-11.1) K/mcL Hgb 13.7 11.6 L D (12.9-16.9) g/dL Hct 41.2 34.0 L (37.5-50.1) % Plt Count 177 123 L (140-400) K/mcL Neutrophils # 3.4 2.9 (1.6-8.9) K/mcL BMP 04/16/18 04/17/18 12:25 04:09 Sodium 138 141 Potassium 4.0 3.8 Chloride 105 108 H Carbon Dioxide 28 28 BUN 15 12 Creatinine 1.20 0.99 Glucose 126 H 94 Calcium 9.5 8.8 Liver Function 04/16/18 04/17/18 Range/Units 12:25 04:09 Total Bilirubin 0.5 0.5 (0.3-1.0) mg/dL Direct Bilirubin 0.1 (0.0-0.2) mg/dL AST 19 16 (13-39) Units/L ALT 15 12 (7-52) Units/L Alkaline Phosphatase 40 35 (34-104) Units/L Albumin 4.4 3.8 (3.5-5.7) g/dL Urine 04/16/18 Range/Units 12:10 Urine Color Yellow (Yellow) Urine Clarity Clear (Clear) Urine pH 6.0 (5.0-8.0) pH Units Ur Specific Archer 1.009 L (1.010-1.025) Urine Protein Negative (Neg-Trace) mg/dL Urine Glucose (UA) Normal (Normal) mg/dL - Impressions Impressions Abdomen/Pelvis CT 04/16/18 17:42 IMPRESSION: 1. Developing hypoattenuation pancreatic head concerning for products of necrosis following acute pancreatitis. Developing pseudocysts is a consideration as well. 2. Persistent findings of acute pancreatitis predominantly about the pancreatic head and neck. 3. Mild intra and extra extrahepatic bile duct dilatation status post cholecystectomy typical of reservoir effect. 4. Diverticulosis coli without CT evidence of acute diverticulitis. D/ / Tk Forrest / Tk Forrest Interpreting Provider: Tk Forrest ___ <Marija Oseguera - Last Filed: 04/17/18 13:42> (1) Pancreatitis Qualifiers: Chronicity: acute Pancreatitis type: unspecified pancreatitis type Acute pancreatitis complication: unspecified Qualified Code(s): K85.90 - Acute pancreatitis without necrosis or infection, unspecified (2) Hypertension Qualifiers: Hypertension type: unspecified Qualified Code(s): I10 - Essential (primary) hypertension (3) Hyperlipidemia Qualifiers: Hyperlipidemia type: unspecified Qualified Code(s): E78.5 - Hyperlipidemia, unspecified (6) CAD (coronary artery disease) Qualifiers: Coronary Disease-Associated Artery/Lesion type: unspecified vessel or lesion type [place] vs. transplanted heart: [place] heart Associated angina: angina presence unspecified Qualified Code(s): I25.10 - Atherosclerotic heart disease of [place] coronary artery without angina pectoris <Yasmeen-Omar Stapleton - Last Filed: 04/17/18 14:45> (1) Acute pancreatitis Qualifiers: Pancreatitis type: unspecified pancreatitis type Acute pancreatitis complication: no infection or necrosis Qualified Code(s): K85.90 - Acute pancreatitis without necrosis or infection, unspecified (2) Hypertension Qualifiers: Hypertension type: unspecified Qualified Code(s): I10 - Essential (primary) hypertension (3) Hyperlipidemia Qualifiers: Hyperlipidemia type: unspecified Qualified Code(s): E78.5 - Hyperlipidemia, unspecified (5) CAD (coronary artery disease) Qualifiers: Coronary Disease-Associated Artery/Lesion type: unspecified vessel or lesion type [place] vs. transplanted heart: [place] heart Associated angina: angina presence unspecified Qualified Code(s): I25.10 - Atherosclerotic heart disease of [place] coronary artery without angina pectoris
[2018-04-17] MEDS: Aspirin Enteric Coated 81 MG Tablet PO SCH (11:05)
[2018-04-17] MEDS ORDERED: *HR* OxyCODONE Immed Rel 15 MG TABLET PO PRN (11:44)
--- NOTE | 2018-04-17 13:07 | Gastroenterology Consult Note ---
<Neo Piper - Last Filed: 04/17/18 13:05> Date of Encounter: 04/17/18 Time of Encounter: 10:50 - Assessment and plan (1) Acute pancreatitis Current Visit: Yes Status: Acute Assessment and plan: On 04/04/2018 Triglycerides 127 , ionized calcium 1.21, IgG4 19, CESAR negative. CT A/P with hypoattenuation of pancreatic head concerning for approximately process versus developing pseudocyst, persistent findings of acute pancreatitis. Lipase 835 on admission and 487 today. Patient is not septic and WBC within normal limits. Plan for EUS as outpatient once inflammation resolved. Continue IV fluids, pain control, and anti-emetics. If pain improves can start clear liquid diet. If pain worsens he may require NG tube. Qualifiers: Pancreatitis type: unspecified pancreatitis type Acute pancreatitis complication: no infection or necrosis Qualified Code(s): K85.90 - Acute pancreatitis without necrosis or infection, unspecified - Time Spent With Patient Total time spent is greater than 50% in coordination of care (as documented) at patient's floor/unit and/or counseling patient: GI History of Present Illness - Data of Consult Patient: known to practice within the last 3 years Consult date: 04/17/18 Requesting Physician: Marija Oseguera - Consult Narrative Reason for consult: Pancreatic necrosis History of present illness: Mr. Nova is a 82 year old male with PMHx of HLD, HTN, [place], CAD who presented to the ED with c/o abdominal pain. Patient was recently hospitalized for similar complaints, with discharge from [facility] on 04/06/2018. During that admission, he was found to have acute pancreatitis secondary to an undetermined etiology. He denies any alcohol use. He is s/p cholecystectomy. Patient states that since going home, his pain has persisted, despite opioid analgesics. He states that his pain is mainly epigastric in location, with lateral radiation. He denies any aggravating or alleviating factors. Patient also reports recent constipation secondary to use of opioid analgesics. CT A/P with hypoattenuation of pancreatic head concerning for approximately process versus developing pseudocyst, persistent findings of acute pancreatitis. Lipase 835 on admission and 487 today. On 04/04/2018 Triglycerides 127 , ionized calcium 1.21, IgG4 19, CESAR negative. Procedures: Colonoscopy >10 years ago, normal per patient. NSAIDs: ASA Anticoagulation: None Past Med Surg Social Fam HX - Past Medical History Medical history: hyperlipidemia, hypertension, myocardial infarction Psychiatric history: no psych history - Past Surgical History Surgical History: cholecystectomy - Social History Smoking Status: Never smoker Smokeless Tobacco Status: No Alcohol use: none Drug use: none - Family History Father Hx Family Cardiac Disorders: Yes Hx Family Neurologic Disorders: Yes (stroke) Mother Hx Family Cardiac Disorders: Yes - Gastrointestinal Gastrointestinal: Present: as per HPI - Constitutional Constitutional: as per HPI - EENT Eyes: as per HPI Ears: Present: as per HPI Nose, mouth and throat: Present: as per HPI - Cardiovascular Cardiovascular ROS: Present: as per HPI - Respiratory Respiratory IM: Present: as per HPI - Genitourinary Genitourinary: Absent: change in color, Urinary frequency - Neurological ROS Neurological GI: Present: as per HPI - Hematologic/Lymphatic Hematologic/Lymphatic pediatric: Present: as per HPI - Musculoskeletal Musculoskeletal ROS GI: Present: as per HPI - Integumentary Integumentary GI: Present: as per HPI - Psychiatric ROS Psychiatric GI: Present: as per HPI - Endocrine Endocrine IM: Present: as per HPI - Constitutional Vitals: Temp Pulse Resp BP Pulse Ox 97.5 F L 48 16 176/83 97 04/17/18 06:49 04/17/18 06:49 04/17/18 06:49 04/17/18 06:49 04/17/18 06:49 General appearance: Present: cooperative, A&O X 3, no acute distress, answers questions appropriately - Head Head exam: Present: atraumatic, normocephalic - Eye Eye exam: Present: normal appearance, sclera anicteric - ENT ENT exam: Present: mucous membranes dry - Neck Neck exam general surgery: Present: normal inspection, trachea midline - Respiratory Respiratory exam: Present: CTAB. Absent: rales, rhonchi - Cardiovascular Cardiovascular exam: Present: RRR, +S1, +S2 - GI/Abdominal GI/Abdominal exam: Present: soft, tenderness (epigastric), no peritoneal signs. Absent: distended, firm, guarding - Rectal Rectal exam: Present: deferred - Extremities Exam Extremities exam: Present: warm - Neurological Exam Neurological exam: Present: no focal deficits - Psychiatric Psychiatric exam: Present: normal affect, normal mood - Skin Skin exam: Present: dry, intact, normal color, warm Results - Labs CBC & Chem 7: 04/17/18 04:09 04/17/18 04:09 Labs: Last Result Calcium 8.8 mg/dL (8.6-10.3) 04/17/18 04:09 Entire Visit Hgb 11.6 g/dL (12.9-16.9) L D 04/17/18 04:09 Hct 34.0 % (37.5-50.1) L 04/17/18 04:09 Total Bilirubin 0.5 mg/dL (0.3-1.0) 04/17/18 04:09 AST 16 Units/L (13-39) 04/17/18 04:09 ALT 12 Units/L (7-52) 04/17/18 04:09 Amylase 80 Units/L (29-103) 04/17/18 04:09 Lipase 487 Units/L (11-82) H 04/17/18 04:09 - Impressions Impressions Abdomen/Pelvis CT 04/16/18 17:42 IMPRESSION: 1. Developing hypoattenuation pancreatic head concerning for products of necrosis following acute pancreatitis. Developing pseudocysts is a consideration as well. 2. Persistent findings of acute pancreatitis predominantly about the pancreatic head and neck. 3. Mild intra and extra extrahepatic bile duct dilatation status post cholecystectomy typical of reservoir effect. 4. Diverticulosis coli without CT evidence of acute diverticulitis. D/ / Tk Forrest / Tk Forrest Interpreting Provider: Tk Forrest Consult Discharge Plan - Plan Referrals: Allie Raymond MD [Partnered Physician] - 05/23/18 9:50 am Marianne Mccurdy MD [Partnered Physician] - 05/31/18 9:10 am Mayito Serrano MD [Primary Care Provider] - 04/22/18 1:30 pm () West Thompson MD [Partnered Physician] - 05/13/18 3:30 pm <West Thompson - Last Filed: 04/17/18 14:38> Date of Encounter: 04/17/18 Time of Encounter: 14:00 - Time Spent With Patient Total time spent is greater than 50% in coordination of care (as documented) at patient's floor/unit and/or counseling patient: GI History of Present Illness - Data of Consult Requesting Physician: Marija Oseguera - Consult Narrative History of present illness: Mr. Nova is a 82 year old male - Constitutional Vitals: Temp Pulse Resp BP Pulse Ox 98.0 F 61 16 169/75 96 04/17/18 14:15 04/17/18 14:15 04/17/18 14:15 04/17/18 14:15 04/17/18 14:15 Results - Labs CBC & Chem 7: 04/17/18 04:09 04/17/18 04:09 Labs: Last Result Calcium 8.8 mg/dL (8.6-10.3) 04/17/18 04:09 Entire Visit Hgb 11.6 g/dL (12.9-16.9) L D 04/17/18 04:09 Hct 34.0 % (37.5-50.1) L 04/17/18 04:09 Total Bilirubin 0.5 mg/dL (0.3-1.0) 04/17/18 04:09 AST 16 Units/L (13-39) 04/17/18 04:09 ALT 12 Units/L (7-52) 04/17/18 04:09 Amylase 80 Units/L (29-103) 04/17/18 04:09 Lipase 487 Units/L (11-82) H 04/17/18 04:09 - Impressions Impressions Abdomen/Pelvis CT 04/16/18 17:42 IMPRESSION: 1. Developing hypoattenuation pancreatic head concerning for products of necrosis following acute pancreatitis. Developing pseudocysts is a consideration as well. 2. Persistent findings of acute pancreatitis predominantly about the pancreatic head and neck. 3. Mild intra and extra extrahepatic bile duct dilatation status post cholecystectomy typical of reservoir effect. 4. Diverticulosis coli without CT evidence of acute diverticulitis. D/ / Tk Forrest / Tk Forrest Interpreting Provider: Tk Forrest - Attending Attestation I have personally performed a face to face evaluation on this patient. I have reviewed and agree with the care plan. History and Exam by me shows: Patient seen at the bedside. Complaining of abdominal pain. On examination: Mid epigastric tenderness. Assessment: acute pancreatitis, CT scan reviewed head of the pancreas possible pseudocyst versus early necrosis. Recommendation: Nothing by mouth IV fluid pain management will start him on IV Dilaudid as hydrocodone is not covering his pain
[2018-04-17] MEDS: OXYCODONE Oral CONC 10 MG/0.5 ML ORAL.SYG SL ONE ×2 (13:10→13:32)
[2018-04-17] MEDS: *HR* OxyCODONE Immed Rel 5 MG TABLET PO SCH ×2 (13:36→13:56)
[2018-04-17] MEDS: *HR* HYDROmorphone (PF) 1 MG/ML SYRINGE IVP PRN ×2 (13:38→18:22)
[2018-04-17] MEDS: Ondansetron 4 MG/2 ML VIAL IVP PRN (18:22)
[2018-04-17] MEDS ORDERED: Ondansetron 4 MG/2 ML VIAL IVP ONE (21:21)
[2018-04-18] MEDS: Ondansetron 4 MG/2 ML VIAL IVP PRN ×3 (02:11→23:06)
[2018-04-18] MEDS ORDERED: Acetaminophen IV 1,000 MG/100 ML INFUS..BTL IVPB ONE (02:36)
[2018-04-18] MEDS: *HR* Heparin 5,000 UNIT/ML VIAL SQ SCH ×3 (05:15→21:22)
[2018-04-18 05:53] LABS: Basophils % 0.2 %; Eosinophils % 0.2 %; Hematocrit 35.8 % (37.5-50.1); Hemoglobin 12.3 g/dL (12.9-16.9); Immature Granulocytes % 0.2 % (0-4); Lymphocytes # 0.6 K/mcL (0.6-4.6); Lymphocytes % 10.7 %; Mean Corpuscular HGB Conc 34.4 g/dL (31.6-35.5); Mean Corpuscular Hemoglobin 30.3 pg (28.0-33.3); Mean Corpuscular Volume 88.2 fL (83.0-100.0); Mean Platelet Volume 10.7 fL (9.4-12.4); Monocytes # 0.2 K/mcL (0.0-1.3); Neutrophils # 5.1 K/mcL (1.6-8.9); Platelet Count 132 K/mcL (140-400); Red Blood Count 4.06 M/mcL (4.19-5.50); Red Cell Distribution Width 12.6 % (11.5-14.5); Segmented Neutrophils % 85.7 %
[2018-04-18 06:07] LABS: Alanine Aminotransferase 11 Units/L (7-52); Albumin 3.8 g/dL (3.5-5.7); Albumin/Globulin Ratio 1.7 (1.1-2.2); Alkaline Phosphatase 37 Units/L (34-104); Amylase 57 Units/L (29-103); Aspartate Amino Transferase 17 Units/L (13-39); BUN/Creatinine Ratio 13 (6-26); Bilirubin,Total 0.4 mg/dL (0.3-1.0); Blood Urea Nitrogen 12 mg/dL (8-23); Calcium 8.9 mg/dL (8.6-10.3); Carbon Dioxide 23 mEq/L (23-29); Chloride 104 mEq/L (98-107); Globulin 2.3 g/dL (2.4-3.5); Glucose 115 mg/dL (70-105); Lipase 292 Units/L (11-82); Osmolality,Calculated 285 (280-300); Potassium 3.8 mEq/L (3.5-5.1); Sodium 137 mEq/L (136-145); Total Protein 6.1 g/dL (6.4-8.9); eGFR For Non-African Americans > 60 (> 60)
[2018-04-18] MEDS: Ringers Solution, Lactated 1,000 ML IVC SCH ×3 (06:27→23:12)
[2018-04-18] MEDS: Aspirin Enteric Coated 81 MG Tablet PO SCH (08:16)
--- NOTE | 2018-04-18 09:31 | Internal Med Progress Note ---
<Marija Oseguera - Last Filed: 04/18/18 13:43> Hospitalist Progress Note - Encounter Date of Encounter: 04/18/18 - Exam Vitals: Temp Pulse Resp BP Pulse Ox 98.3 F 76 16 181/94 95 04/18/18 10:36 04/18/18 10:36 04/18/18 10:36 04/18/18 10:36 04/18/18 10:36 - Assessment and Plan (1) Pancreatitis Current Visit: Yes Status: Acute (2) Hypertension Current Visit: Yes Status: Chronic (3) Hyperlipidemia Current Visit: Yes Status: Chronic (4) DVT prophylaxis Current Visit: Yes Status: Acute (5) Constipation due to opioid therapy Current Visit: Yes Status: Acute (6) CAD (coronary artery disease) Current Visit: Yes Status: Acute - Time Spent with Patient Total time spent is greater than 50% in coordination of care (as documented) at patient's floor/unit and/or counseling patient: Internal Medicine: Result - Labs CBC & Chem 7: 04/18/18 04:47 04/18/18 04:47 Labs: Short CBC 04/18/18 Range/Units 04:47 WBC 6.0 (4.3-11.1) K/mcL Hgb 12.3 L (12.9-16.9) g/dL Hct 35.8 L (37.5-50.1) % Plt Count 132 L (140-400) K/mcL Neutrophils # 5.1 (1.6-8.9) K/mcL BMP 04/18/18 04:47 Sodium 137 Potassium 3.8 Chloride 104 Carbon Dioxide 23 BUN 12 Creatinine 0.95 Glucose 115 H Calcium 8.9 Liver Function 04/18/18 Range/Units 04:47 Total Bilirubin 0.4 (0.3-1.0) mg/dL AST 17 (13-39) Units/L ALT 11 (7-52) Units/L Alkaline Phosphatase 37 (34-104) Units/L Albumin 3.8 (3.5-5.7) g/dL Consult Discharge Plan - Plan Referrals: Allie Raymond MD [Partnered Physician] - 05/23/18 9:50 am Marianne Mccurdy MD [Partnered Physician] - 05/31/18 9:10 am Mayito Serrano MD [Primary Care Provider] - 04/22/18 1:30 pm () West Thompson MD [Partnered Physician] - 05/13/18 3:30 pm - Attending Attestation I examined this patient and my medical decision-making was reviewed with the Resident Physician Dr Kelly. I agree with the documented findings, disposition and treatment plan as described except to the extent set forth below. Mr Nova is admitted with acute pancreatitis awake, dialudid has made him nauseaed, dizzy and overall uncomofrtable after two doses last night. pain now 4/10 and benefitting from tylenol. denies fevers, chills, no emesis. feeling hungry. 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 and no fluid collection or stones/obstruction He denied etoh use, tgs were in 120-130s, celine was neg and GI followed -s/p IVF boluses, cont MIVFs, may be able to down titrate soon -CT scan with findings concerning for necrosis vs developing pseudocyst -cont npo except meds,adjusted pain control today due to not tolerating dialudid as ordered by gi, -will fu gi recs today in regards to feeding/fluids GI consultation - rec per discussion with our team is for outpt EUS, does not require abx Constipation with recent opiate use, last bm 04/16- -colace with opiates and laxative prn Drop in Hgb to 11.6- is s/p aggressive IVFs and without active bleeding, now stable and uptrended, cont to monitor, hemodynamically stable HTN- cont arb, norvasc ordered, adjusting meds as needed, pain control CAD- cont home asa, statin, arb, and BB can be added back as HR permits further diagnoses and plan as noted by resident <Neo Kelly - Last Filed: 04/18/18 20:10> Hospitalist Progress Note - Encounter Date of Encounter: 04/18/18 Time of Encounter: 09:00 - Subjective Interval History: The patient is resting in bed at time of examination. He says that his pain was very poor overnight, however he did receive a dose of Dilaudid and since that time he has been very nauseated and been feeling very dizzy. Overall he is just not feeling well. He has not been able to tolerate his pain medications thus far. He says that Tylenol has been the most appropriate form thus far. He is not vomiting at this time. He has not had any bowel movements and he is passing gas. He has no other acute complaints today. - Exam Vitals: Temp Pulse Resp BP Pulse Ox 98.1 F 77 16 165/95 97 04/18/18 06:21 04/18/18 06:21 04/18/18 06:21 04/18/18 06:21 04/18/18 06:21 Exam: General: Well-appearing male lying comfortably in bed in no acute distress. Skin: Warm and supple. Head: Normocephalic, atrauma EENT: Moist mucous membranes. No conjunctivae pallor. Neck: No JVD. Trachea midline. Chest: CTA bilaterally. No wheezes, rhonchi, or rales. Normal thoracic expansion. Heart: Normal S1 & S2; rhythmic. No rubs, gallops, or murmurs. Abdomen: Moderate epigastric tenderness with guarding which is about the same as it was previously. No tenderness in other quadrants. No distension. No hepatomegaly or splenomegaly. Extremities: No clubbing, cyanosis or edema. No calf tenderness. Neurological: AAOx3. No focal deficits. - Assessment and Plan (1) Pancreatitis Current Visit: Yes Status: Acute Assessment and Plan: Acute on chronic pancreatitis, improving Clinically the patient does appear to be improving. His pain has improved drastically and his abdominal exam remains benign Vital signs remain stable, laboratory studies are unremarkable with the exception of his lipase which has decreased to 292 down from 487 On arrival, CT of the abdomen did demonstrate persistent acute findings of pancreatitis predominantly around the pancreatic head and neck with concern for developing pseudocyst versus necrosis GI is on board and is not concerned for necrosis at this time and has recommende d discontinuation of ertapenem Since discontinuing this medication the patient has continued to improve Plan Treat pain with Percocet as patient says Tylenol seems to help Continue IV fluids Advance diet to clear liquids per GI recommendation Continue to monitor abdominal exams Plan for outpatient EUS with GI (2) Hypertension Current Visit: Yes Status: Chronic Assessment and Plan: Patient has remained relatively hypertensive throughout this stay At first we considered that pain may be a primary cause of this hypertension His pain has however been treated at times with well-controlled pain, and his blood pressure is remained high We have continued his home Losartan but held atenolol due to bradycardia We will add amlodipine 5 mg today and monitor blood pressure (3) Hyperlipidemia Current Visit: Yes Status: Chronic Assessment and Plan: - Continue atorvastatin 40mg daily. (4) Constipation due to opioid therapy Current Visit: Yes Status: Acute Assessment and Plan: Suspected secondary to opiate-induced constipation Patient has been on Colace for bowel regimen thus far If he continues to have constipation I will add a stimulant-based laxative (5) CAD (coronary artery disease) Current Visit: Yes Status: Acute Assessment and Plan: - Continue home medications of aspirin, atorvastatin, and losartan. Atenolol has been held due to bradycardia DVT Prophylaxis: Subcutaneous heparin - Time Spent with Patient Total time spent is greater than 50% in coordination of care (as documented) at patient's floor/unit and/or counseling patient: Internal Medicine: Result - Labs CBC & Chem 7: 04/18/18 04:47 04/18/18 04:47 Labs: Short CBC 04/18/18 Range/Units 04:47 WBC 6.0 (4.3-11.1) K/mcL Hgb 12.3 L (12.9-16.9) g/dL Hct 35.8 L (37.5-50.1) % Plt Count 132 L (140-400) K/mcL Neutrophils # 5.1 (1.6-8.9) K/mcL BMP 04/18/18 04:47 Sodium 137 Potassium 3.8 Chloride 104 Carbon Dioxide 23 BUN 12 Creatinine 0.95 Glucose 115 H Calcium 8.9 Liver Function 04/18/18 Range/Units 04:47 Total Bilirubin 0.4 (0.3-1.0) mg/dL AST 17 (13-39) Units/L ALT 11 (7-52) Units/L Alkaline Phosphatase 37 (34-104) Units/L Albumin 3.8 (3.5-5.7) g/dL <Marija Oseguera - Last Filed: 04/18/18 13:43> (1) Pancreatitis Qualifiers: Chronicity: acute Pancreatitis type: unspecified pancreatitis type Acute p ancreatitis complication: unspecified Qualified Code(s): K85.90 - Acute pancreatitis without necrosis or infection, unspecified (2) Hypertension Qualifiers: Hypertension type: unspecified Qualified Code(s): I10 - Essential (primary) hypertension (3) Hyperlipidemia Qualifiers: Hyperlipidemia type: unspecified Qualified Code(s): E78.5 - Hyperlipidemia, unspecified (6) CAD (coronary artery disease) Qualifiers: Coronary Disease-Associated Artery/Lesion type: unspecified vessel or lesion type [place] vs. transplanted heart: [place] heart Associated angina: angina pr esence unspecified Qualified Code(s): I25.10 - Atherosclerotic heart disease of [place] coronary artery without angina pectoris <Neo Kelly - Last Filed: 04/18/18 20:10> (1) Pancreatitis Qualifiers: Chronicity: acute Pancreatitis type: unspecified pancreatitis type Acute pancreatitis complication: unspecified Qualified Code(s): K85.90 - Acute p ancreatitis without necrosis or infection, unspecified (2) Hypertension Qualifiers: Hypertension type: unspecified Qualified Code(s): I10 - Essential (primary) hypertension (3) Hyperlipidemia Qualifiers: Hyperlipidemia type: unspecified Qualified Code(s): E78.5 - Hyperlipidemia, unspecified (5) CAD (coronary artery disease) Qualifiers: Coronary Disease-Associated Artery/Lesion type: unspecified vessel or lesion type [place] vs. transplanted heart: [place] heart Associated angina: angina presence unspecified Qualified Code(s): I25.10 - Atherosclerotic heart disease of [place] coronary artery without angina pectoris
[2018-04-18] MEDS: amLODIPine 5 MG TABLET PO SCH (10:22)
[2018-04-18] MEDS: *HR* OxyCODONE/APAP 7.5/325 TABLET PO PRN (15:06)
[2018-04-18] MEDS: Acetaminophen 325 MG TABLET PO PRN (21:22)
[2018-04-18] MEDS ORDERED: Gabapentin 400 MG CAPSULE PO ONE (21:49)
[2018-04-19 02:55] LABS: Basophils % 0.3 %; Eosinophils # 0.3 K/mcL (0.0-0.6); Eosinophils % 5.3 %; Hematocrit 32.1 % (37.5-50.1); Hemoglobin 11.1 g/dL (12.9-16.9); Immature Granulocytes % 0.2 % (0-4); Lymphocytes # 1.2 K/mcL (0.6-4.6); Lymphocytes % 20.8 %; Mean Corpuscular HGB Conc 34.6 g/dL (31.6-35.5); Mean Corpuscular Hemoglobin 30.3 pg (28.0-33.3); Mean Corpuscular Volume 87.7 fL (83.0-100.0); Mean Platelet Volume 10.6 fL (9.4-12.4); Monocytes # 0.5 K/mcL (0.0-1.3); Monocytes % 8.9 %; Neutrophils # 3.8 K/mcL (1.6-8.9); Platelet Count 118 K/mcL (140-400); Red Blood Count 3.66 M/mcL (4.19-5.50); Segmented Neutrophils % 64.5 %
[2018-04-19 03:14] LABS: Alanine Aminotransferase 12 Units/L (7-52); Albumin 3.3 g/dL (3.5-5.7); Albumin/Globulin Ratio 1.8 (1.1-2.2); Alkaline Phosphatase 30 Units/L (34-104); Aspartate Amino Transferase 20 Units/L (13-39); BUN/Creatinine Ratio 14 (6-26); Bilirubin,Total 0.4 mg/dL (0.3-1.0); Blood Urea Nitrogen 12 mg/dL (8-23); Calcium 8.4 mg/dL (8.6-10.3); Carbon Dioxide 25 mEq/L (23-29); Chloride 106 mEq/L (98-107); Globulin 1.8 g/dL (2.4-3.5); Glucose 104 mg/dL (70-105); Osmolality,Calculated 288 (280-300); Potassium 3.4 mEq/L (3.5-5.1); Sodium 139 mEq/L (136-145); Total Protein 5.1 g/dL (6.4-8.9); eGFR For Non-African Americans > 60 (> 60)
[2018-04-19] MEDS: *HR* Heparin 5,000 UNIT/ML VIAL SQ SCH ×3 (05:28→21:01)
[2018-04-19] MEDS: Ringers Solution, Lactated 1,000 ML IVC SCH (07:03)
--- NOTE | 2018-04-19 08:24 | Internal Med Progress Note ---
<Marija Oseguera - Last Filed: 04/19/18 11:29> Hospitalist Progress Note - Encounter Date of Encounter: 04/19/18 - Exam Vitals: Temp Pulse Resp BP Pulse Ox 97.6 F 55 17 138/72 98 04/19/18 07:25 04/19/18 07:25 04/19/18 07:25 04/19/18 07:25 04/19/18 07:25 - Assessment and Plan (1) Pancreatitis Current Visit: Yes Status: Acute (2) Hypertension Current Visit: Yes Status: Chronic (3) Hyperlipidemia Current Visit: Yes Status: Chronic (4) Constipation due to opioid therapy Current Visit: Yes Status: Acute (5) CAD (coronary artery disease) Current Visit: Yes Status: Acute - Time Spent with Patient Total time spent is greater than 50% in coordination of care (as documented) at patient's floor/unit and/or counseling patient: Internal Medicine: Result - Labs CBC & Chem 7: 04/19/18 02:19 04/19/18 02:19 Labs: Short CBC 04/19/18 Range/Units 02:19 WBC 5.9 (4.3-11.1) K/mcL Hgb 11.1 L (12.9-16.9) g/dL Hct 32.1 L (37.5-50.1) % Plt Count 118 L (140-400) K/mcL Neutrophils # 3.8 (1.6-8.9) K/mcL BMP 04/19/18 02:19 Sodium 139 Potassium 3.4 L Chloride 106 Carbon Dioxide 25 BUN 12 Creatinine 0.86 Glucose 104 Calcium 8.4 L Liver Function 04/19/18 Range/Units 02:19 Total Bilirubin 0.4 (0.3-1.0) mg/dL AST 20 (13-39) Units/L ALT 12 (7-52) Units/L Alkaline Phosphatase 30 L (34-104) Units/L Albumin 3.3 L (3.5-5.7) g/dL Consult Discharge Plan - Plan Referrals: Allie Raymond MD [Partnered Physician] - 05/23/18 9:50 am Marianne Mccurdy MD [Partnered Physician] - 05/31/18 9:10 am Mayito Serrano MD [Primary Care Provider] - 04/22/18 1:30 pm () West Thompson MD [Partnered Physician] - 05/13/18 3:30 pm - Attending Attestation I examined this patient and my medical decision-making was reviewed with the Resident Physician Dr Kelly. I agree with the documented findings, dispositi on and treatment plan as described except to the extent set forth below. Mr Nova is admitted with acute pancreatitis awake, sitting at bedside eating breakfast. pain tolerable overnight with tylenol. tolerating clear liquids without nausea, emsis or worsened pain. feeling fatigued. 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 and no fluid collection or stones/obstruction He denied etoh use, tgs were in 120-130s, celine was neg and GI followed CT scan with findings concerning for necrosis vs developing pseudocyst GI has evaluated and recommended outpt EUS -may dc ivfs and adat today -cont prn pain control Constipation with recent opiate use, last bm 04/16- -colace with opiates and laxative prn- increase bowel regimen today, encourage ambulation Acute anemia this admission suspected to be related to aggressive ivfs, no active bleeding and hemodynamically stable -will cont to monitor for uptrend off ivfs HTN- cont arb, norvasc, pain control -cont to hole home atenolol given bradycardia with it, this may be reinitated outpt as needed and will noted in follow up on discharge -fu with pcp oon discharge for further monitoring and management CAD- cont home asa, statin, arb, and BB can be added back as HR permits outpt hypokalemia- oral repletion today and cont to monitor, advancing diet further diagnoses and plan as noted by resident <Neo Kelly - Last Filed: 04/19/18 17:21> Hospitalist Progress Note - Encounter Date of Encounter: 04/19/18 Time of Encounter: 09:50 - Subjective Interval History: The patient is resting in chair at time of examination. He states that is feeling much better overall, and that his pain is 1-2 out of 10. He has not had any significant nausea or vomiting. He has not had a bowel movement but he has had flatulence. He otherwise has no acute complaints today. - Exam Vitals: Temp Pulse Resp BP Pulse Ox 97.6 F 55 17 138/72 98 04/19/18 07:25 04/19/18 07:25 04/19/18 07:25 04/19/18 07:25 04/19/18 07:25 Exam: General: Well-appearing male lying comfortably in bed in no acute distress. Skin: Warm and supple. Head: Normocephalic, atrauma EENT: Moist mucous membranes. No conjunctivae pallor. Neck: No JVD. Trachea midline. Chest: CTA bilaterally. No wheezes, rhonchi, or rales. Normal thoracic expansion . Heart: Normal S1 & S2; rhythmic. No rubs, gallops, or murmurs. Abdomen: Moderate epigastric tenderness with guarding which is about the same as it was previously. No tenderness in other quadrants. No distension. No hepatomegaly or splenomegaly. Extremities: No clubbing, cyanosis or edema. No calf tenderness. Neurological: AAOx3. No focal deficits. - Assessment and Plan (1) Pancreatitis Current Visit: Yes Status: Acute Assessment and Plan: Acute on chronic pancreatitis, improving Clinically the patient does appear to be improving. His pain has improved drastically and his abdominal exam remains benign Vital signs remain stable, laboratory studies are unremarkable with the except ion of his lipase which has decreased to 292 down from 487 On arrival, CT of the abdomen did demonstrate persistent acute findings of pancreatitis predominantly around the pancreatic head and neck with concern for developing pseudocyst versus necrosis GI is on board and is not concerned for necrosis at this time and has recommended discontinuation of ertapenem Since discontinuing this medication the patient has continued to improve Plan Treat pain with Percocet as patient says Tylenol seems to help We will discontinue IV fluids today Advance diet as tolerated, mechanical soft at dinner Continue to monitor abdominal exams Plan for outpatient EUS with GI (2) Hypertension Current Visit: Yes Status: Chronic Assessment and Plan: Patient has remained relatively hypertensive throughout this stay At first we considered that pain may be a primary cause of this hypertension His pain has however been treated at times with well-controlled pain, and his blood pressure is remained high We have continued his home Losartan but held atenolol due to bradycardia I started 5 mg amlodipine which did drop his blood pressure however he did have some spikes I will increase him to 7.5 mg amlodipine tomorrow Continue to monitor (3) Hyperlipidemia Current Visit: Yes Status: Chronic Assessment and Plan: - Continue atorvastatin 40mg daily. (4) Constipation due to opioid therapy Current Visit: Yes Status: Acute Assessment and Plan: Suspected secondary to opiate-induced constipation Discontinued Colace, started senna plus twice a day (5) CAD (coronary artery disease) Current Visit: Yes Status: Acute Assessment and Plan: - Continue home medications of aspirin, atorvastatin, and losartan. Atenolol has been held due to bradycardia This will likely be held at time of discharge as well as he is remaining bradycardic Outpatient provider will need to evaluate need for beta maryam considering CAD history DVT Prophylaxis: Subcutaneous heparin - Time Spent with Patient Total time spent is greater than 50% in coordination of care (as documented) at patient's floor/unit and/or counseling patient: Internal Medicine: Result - Labs CBC & Chem 7: 04/19/18 02:19 04/19/18 02:19 Labs: Short CBC 04/19/18 Range/Units 02:19 WBC 5.9 (4.3-11.1) K/mcL Hgb 11.1 L (12.9-16.9) g/dL Hct 32.1 L (37.5-50.1) % Plt Count 118 L (140-400) K/mcL Neutrophils # 3.8 (1.6-8.9) K/mcL BMP 04/19/18 02:19 Sodium 139 Potassium 3.4 L Chloride 106 Carbon Dioxide 25 BUN 12 Creatinine 0.86 Glucose 104 Calcium 8.4 L Liver Function 04/19/18 Range/Units 02:19 Total Bilirubin 0.4 (0.3-1.0) mg/dL AST 20 (13-39) Units/L ALT 12 (7-52) Units/L Alkaline Phosphatase 30 L (34-104) Units/L Albumin 3.3 L (3.5-5.7) g/dL <Marija Oseguera - Last Filed: 04/19/18 11:29> (1) Pancreatitis Qualifiers: Chronicity: acute Pancreatitis type: unspecified pancreatitis type Acute pancreatitis complication: unspecified Qualified Code(s): K85.90 - Acute pancreatitis without necrosis or infection, unspecified (2) Hypertension Qualifiers: Hypertension type: unspecified Qualified Code(s): I10 - Essential (primary) hypertension (3) Hyperlipidemia Qualifiers: Hyperlipidemia type: unspecified Qualified Code(s): E78.5 - Hyperlipidemia, unspecified (5) CAD (coronary artery disease) Qualifiers: Coronary Disease-Associated Artery/Lesion type: unspecified vessel or lesion type [place] vs. transplanted heart: [place] heart Associated angina: angina presence unspecified Qualified Code(s): I25.10 - Atherosclerotic heart disease of [place] coronary artery without angina pectoris <Neo Kelly - Last Filed: 04/19/18 17:21> (1) Pancreatitis Qualifiers: Chronicity: acute Pancreatitis type: unspecified pancreatitis type Acute pancreatitis complication: unspecified Qualified Code(s): K85.90 - Acute pancreatitis without necrosis or infection, unspecified (2) Hypertension Qualifiers: Hypertension type: unspecified Qualified Code(s): I10 - Essential (primary) hypertension (3) Hyperlipidemia Qualifiers: Hyperlipidemia type: unspecified Qualified Code(s): E78.5 - Hyperlipidemia, unspecified (5) CAD (coronary artery disease) Qualifiers: Coronary Disease-Associated Artery/Lesion type: unspecified vessel or lesion type [place] vs. transplanted heart: [place] heart Associated angina: angina presence unspecified Qualified Code(s): I25.10 - Atherosclerotic heart disease of [place] coronary artery without angina pectoris
[2018-04-19] MEDS: amLODIPine 5 MG TABLET PO SCH (08:32)
[2018-04-19] MEDS: Aspirin Enteric Coated 81 MG Tablet PO SCH (08:33)
[2018-04-19] MEDS: Sennosides/Docusate Sodium TABLET PO SCH (21:01)
[2018-04-19] MEDS: Gabapentin 400 MG CAPSULE PO SCH (21:01)
[2018-04-19] MEDS: Acetaminophen 325 MG TABLET PO PRN (21:10)
[2018-04-20 05:13] LABS: Alanine Aminotransferase 19 Units/L (7-52); Albumin 3.5 g/dL (3.5-5.7); Albumin/Globulin Ratio 1.8 (1.1-2.2); Alkaline Phosphatase 34 Units/L (34-104); Aspartate Amino Transferase 31 Units/L (13-39); BUN/Creatinine Ratio 12 (6-26); Bilirubin,Total 0.4 mg/dL (0.3-1.0); Blood Urea Nitrogen 11 mg/dL (8-23); Calcium 8.8 mg/dL (8.6-10.3); Carbon Dioxide 25 mEq/L (23-29); Chloride 108 mEq/L (98-107); Globulin 1.9 g/dL (2.4-3.5); Glucose 113 mg/dL (70-105); Lipase 429 Units/L (11-82); Osmolality,Calculated 292 (280-300); Potassium 3.7 mEq/L (3.5-5.1); Sodium 141 mEq/L (136-145); Total Protein 5.4 g/dL (6.4-8.9); eGFR For Non-African Americans > 60 (> 60)
[2018-04-20] MEDS: *HR* Heparin 5,000 UNIT/ML VIAL SQ SCH ×3 (05:54→20:54)
[2018-04-20] MEDS ORDERED: amLODIPine 5 MG TABLET PO SCH (09:00)
[2018-04-20] MEDS: Aspirin Enteric Coated 81 MG Tablet PO SCH (09:24)
[2018-04-20] MEDS: Sennosides/Docusate Sodium TABLET PO SCH ×2 (09:24→20:54)
[2018-04-20] MEDS: Acetaminophen 325 MG TABLET PO PRN ×2 (11:09→20:54)
--- NOTE | 2018-04-20 11:49 | Internal Med Progress Note ---
<Marija Oseguera - Last Filed: 04/20/18 15:37> Hospitalist Progress Note - Encounter Date of Encounter: 04/20/18 - Exam Vitals: Temp Pulse Resp BP Pulse Ox 97.6 F 77 16 150/76 96 04/20/18 15:07 04/20/18 15:07 04/20/18 15:07 04/20/18 15:07 04/20/18 15:07 - Assessment and Plan (1) Pancreatitis Current Visit: Yes Status: Acute (2) Hypertension Current Visit: Yes Status: Chronic (3) Hyperlipidemia Current Visit: Yes Status: Chronic (4) Constipation due to opioid therapy Current Visit: Yes Status: Acute (5) CAD (coronary artery disease) Current Visit: Yes Status: Acute - Time Spent with Patient Total time spent is greater than 50% in coordination of care (as documented) at patient's floor/unit and/or counseling patient: Internal Medicine: Result - Labs CBC & Chem 7: 04/19/18 02:19 04/20/18 04:24 Labs: BMP 04/20/18 04:24 Sodium 141 Potassium 3.7 Chloride 108 H Carbon Dioxide 25 BUN 11 Creatinine 0.92 Glucose 113 H Calcium 8.8 Liver Function 04/20/18 Range/Units 04:24 Total Bilirubin 0.4 (0.3-1.0) mg/dL AST 31 (13-39) Units/L ALT 19 (7-52) Units/L Alkaline Phosphatase 34 (34-104) Units/L Albumin 3.5 (3.5-5.7) g/dL Consult Discharge Plan - Plan Referrals: Allie Raymond MD [Partnered Physician] - 05/23/18 9:50 am Marianne Mccurdy MD [Partnered Physician] - 05/31/18 9:10 am Mayito Serrano MD [Primary Care Provider] - 04/22/18 1:30 pm () West Thompson MD [Partnered Physician] - 05/13/18 3:30 pm - Attending Attestation I examined this patient and my medical decision-making was reviewed with the Resident Physician Dr Kelly. I agree with the documented findings, disposition and treatment plan as described except to the extent set forth below. Mr Nova is admitted with acute pancreatitis awake, sitting at bedside. pain continues to be overall improved. had some abd epigastric "soreness" just after dinner which resolved. no n/v fevers or chills. 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 and no fluid collection or stones/obstruction He denied etoh use, tgs were in 120-130s, celine was neg and GI followed CT scan with findings concerning for necrosis vs developing pseudocyst GI has evaluated and recommended outpt EUS -increased lipase back into 400s with diet- cont current diet, lipase in am, clinically improved, will have gi see him in follow up tomorrow(saturday) Constipation with recent opiate use, last bm 04/16- -colace with opiates and laxative prn- cont bowel regimen, encourage ambulation Acute anemia this admission suspected to be related to aggressive ivfs, no active bleeding and hemodynamically stable -will cont to monitor HTN- cont arb, norvasc, pain control -cont to hole home atenolol given bradycardia with it, this may be reinitated outpt as needed and will noted in follow up on discharge -fu with pcp on discharge for further monitoring and management CAD- cont home asa, statin, arb, and BB can be added back as HR permits outpt further diagnoses and plan as noted by resident <Neo Kelly - Last Filed: 04/20/18 17:16> Hospitalist Progress Note - Encounter Date of Encounter: 04/20/18 Time of Encounter: 10:30 - Subjective Interval History: The patient is resting in chair reading a book at time of examination. He says that he is feeling well today without any acute complaints. He did advance his diet to a soft diet and has not had any issue with this. He said it was a little bit tiring to chew, however his stomach has been feeling fine. He denies nausea or vomiting. He has not had any issues with constipation diarrhea either. He did take Tylenol for pain last night however he says his pain was 2 or 3 out of 10. He otherwise has no issues. - Exam Vitals: Temp Pulse Resp BP Pulse Ox 97.7 F 91 16 154/90 99 04/20/18 11:19 04/20/18 11:19 04/20/18 11:19 04/20/18 11:19 04/20/18 11:19 Exam: General: Well-appearing male lying comfortably in bed in no acute distress. Skin: Warm and supple. Head: Normocephalic, atrauma EENT: Moist mucous membranes. No conjunctivae pallor. Neck: No JVD. Trachea midline. Chest: CTA bilaterally. No wheezes, rhonchi, or rales. Normal thoracic expansion. Heart: Normal S1 & S2; rhythmic. No rubs, gallops, or murmurs. Abdomen: Moderate epigastric tenderness with guarding which is about the same as it was previously. No tenderness in other quadrants. No distension. No hepatomegaly or splenomegaly. Extremities: No clubbing, cyanosis or edema. No calf tenderness. Neurological: AAOx3. No focal deficits. - Assessment and Plan (1) Pancreatitis Current Visit: Yes Status: Acute Assessment and Plan: Acute on chronic pancreatitis, improving Clinically the patient does appear to be improving. His pain has improved drastically and his abdominal exam remains benign Although he seems to be doing well clinically, I do have concerns because his lipase did go from 203-429 overnight I suspect that some of this may be due to the fact that we advanced his diet Still, he is not having pain, nor is he have any nausea or vomiting associated with this Plan Treat pain with Tylenol Advance diet as tolerated, mechanical soft at dinner Continue to monitor abdominal exams If his lipase increases or he develops abdominal pain, reimage in the morning Plan for outpatient EUS with GI (2) Hypertension Current Visit: Yes Status: Chronic Assessment and Plan: Patient has remained relatively hypertensive throughout this stay At first we considered that pain may be a primary cause of this hypertension His pain has however been treated at times with well-controlled pain, and his blood pressure is remained high We have continued his home Losartan but held atenolol due to bradycardia His blood pressure has remained in the 150s for most of the day today despite increased to 7.5mg amlodipine I will increase his amlodipine to 10 mg tomorrow. Continue to monitor (3) Hyperlipidemia Current Visit: Yes Status: Chronic Assessment and Plan: - Continue atorvastatin 40mg daily. (4) Constipation due to opioid therapy Current Visit: Yes Status: Acute Assessment and Plan: Suspected secondary to opiate-induced constipation Discontinued Colace, started senna plus twice a day (5) CAD (coronary artery disease) Current Visit: Yes Status: Acute Assessment and Plan: - Continue home medications of aspirin, atorvastatin, and losartan. Atenolol has been held due to bradycardia This will likely be held at time of discharge as well as he is remaining bradycardic Outpatient provider will need to evaluate need for beta maryam considering CAD history DVT Prophylaxis: Subcutaneous heparin - Time Spent with Patient Total time spent is greater than 50% in coordination of care (as documented) at patient's floor/unit and/or counseling patient: Internal Medicine: Result - Labs CBC & Chem 7: 04/19/18 02:19 04/20/18 04:24 Labs: BMP 04/20/18 04:24 Sodium 141 Potassium 3.7 Chloride 108 H Carbon Dioxide 25 BUN 11 Creatinine 0.92 Glucose 113 H Calcium 8.8 Liver Function 04/20/18 Range/Units 04:24 Total Bilirubin 0.4 (0.3-1.0) mg/dL AST 31 (13-39) Units/L ALT 19 (7-52) Units/L Alkaline Phosphatase 34 (34-104) Units/L Albumin 3.5 (3.5-5.7) g/dL <Marija Oesguera - Last Filed: 04/20/18 15:37> (1) Pancreatitis Qualifiers: Chronicity: acute Pancreatitis type: unspecified pancreatitis type Acute pancreatitis complication: unspecified Qualified Code(s): K85.90 - Acute pancreatitis without necrosis or infection, unspecified (2) Hypertension Qualifiers: Hypertension type: unspecified Qualified Code(s): I10 - Essential (primary) hypertension (3) Hyperlipidemia Qualifiers: Hyperlipidemia type: unspecified Qualified Code(s): E78.5 - Hyperlipidemia, unspecified (5) CAD (coronary artery disease) Qualifiers: Coronary Disease-Associated Artery/Lesion type: unspecified vessel or lesion type [place] vs. transplanted heart: [place] heart Associated angina: angina presence unspecified Qualified Code(s): I25.10 - Atherosclerotic heart disease of [place] coronary artery without angina pectoris <Neo Kelly - Last Filed: 04/20/18 17:16> (1) Pancreatitis Qualifiers: Chronicity: acute Pancreatitis type: unspecified pancreatitis type Acute p ancreatitis complication: unspecified Qualified Code(s): K85.90 - Acute pancreatitis without necrosis or infection, unspecified (2) Hypertension Qualifiers: Hypertension type: unspecified Qualified Code(s): I10 - Essential (primary) hypertension (3) Hyperlipidemia Qualifiers: Hyperlipidemia type: unspecified Qualified Code(s): E78.5 - Hyperlipidemia, unspecified (5) CAD (coronary artery disease) Qualifiers: Coronary Disease-Associated Artery/Lesion type: unspecified vessel or lesion type [place] vs. transplanted heart: [place] heart Associated angina: angina pr esence unspecified Qualified Code(s): I25.10 - Atherosclerotic heart disease of [place] coronary artery without angina pectoris
[2018-04-20] MEDS: *HR* OxyCODONE/APAP 7.5/325 TABLET PO PRN ×2 (15:23→23:38)
[2018-04-20] MEDS: Gabapentin 400 MG CAPSULE PO SCH (20:53)
[2018-04-21 04:23] LABS: Basophils % 0.4 %; Eosinophils # 0.6 K/mcL (0.0-0.6); Eosinophils % 10.5 %; Hematocrit 32.9 % (37.5-50.1); Hemoglobin 11.3 g/dL (12.9-16.9); Lymphocytes # 1.5 K/mcL (0.6-4.6); Mean Corpuscular HGB Conc 34.3 g/dL (31.6-35.5); Mean Corpuscular Hemoglobin 30.6 pg (28.0-33.3); Mean Corpuscular Volume 89.2 fL (83.0-100.0); Monocytes # 0.5 K/mcL (0.0-1.3); Monocytes % 8.4 %; Neutrophils # 2.9 K/mcL (1.6-8.9); Platelet Count 106 K/mcL (140-400); Red Blood Count 3.69 M/mcL (4.19-5.50); Red Cell Distribution Width 13.2 % (11.5-14.5)
[2018-04-21 04:45] LABS: Alanine Aminotransferase 21 Units/L (7-52); Albumin 3.5 g/dL (3.5-5.7); Albumin/Globulin Ratio 1.9 (1.1-2.2); Alkaline Phosphatase 34 Units/L (34-104); Aspartate Amino Transferase 28 Units/L (13-39); BUN/Creatinine Ratio 17 (6-26); Bilirubin,Total 0.4 mg/dL (0.3-1.0); Blood Urea Nitrogen 16 mg/dL (8-23); Calcium 8.6 mg/dL (8.6-10.3); Carbon Dioxide 26 mEq/L (23-29); Chloride 107 mEq/L (98-107); Globulin 1.8 g/dL (2.4-3.5); Glucose 114 mg/dL (70-105); Lipase 427 Units/L (11-82); Osmolality,Calculated 292 (280-300); Potassium 3.5 mEq/L (3.5-5.1); Sodium 140 mEq/L (136-145); Total Protein 5.3 g/dL (6.4-8.9); eGFR For Non-African Americans > 60 (> 60)
[2018-04-21] MEDS: *HR* Heparin 5,000 UNIT/ML VIAL SQ SCH ×3 (05:48→21:25)
[2018-04-21 06:13] LABS: Segmented Neutrophils % 52.2 %
[2018-04-21] MEDS: Aspirin Enteric Coated 81 MG Tablet PO SCH (08:51)
[2018-04-21] MEDS: Sennosides/Docusate Sodium TABLET PO SCH ×2 (08:51→20:20)
--- NOTE | 2018-04-21 09:09 | Internal Med Progress Note ---
<Marija Oseguera - Last Filed: 04/21/18 10:00> Hospitalist Progress Note - Encounter Date of Encounter: 04/21/18 - Exam Vitals: Temp Pulse Resp BP Pulse Ox 97.2 F L 71 16 141/57 99 04/21/18 07:53 04/21/18 08:41 04/21/18 08:41 04/21/18 08:41 04/21/18 08:41 - Assessment and Plan (1) Pancreatitis Current Visit: Yes Status: Acute (2) Hypertension Current Visit: Yes Status: Chronic (3) Hyperlipidemia Current Visit: Yes Status: Chronic (4) Constipation due to opioid therapy Current Visit: Yes Status: Acute (5) CAD (coronary artery disease) Current Visit: Yes Status: Acute - Time Spent with Patient Total time spent is greater than 50% in coordination of care (as documented) at patient's floor/unit and/or counseling patient: Internal Medicine: Result - Labs CBC & Chem 7: 04/21/18 03:38 04/21/18 03:38 Labs: Short CBC 04/21/18 Range/Units 03:38 WBC 5.5 (4.3-11.1) K/mcL Hgb 11.3 L (12.9-16.9) g/dL Hct 32.9 L (37.5-50.1) % Plt Count 106 L (140-400) K/mcL Neutrophils # 2.9 (1.6-8.9) K/mcL BMP 04/21/18 03:38 Sodium 140 Potassium 3.5 Chloride 107 Carbon Dioxide 26 BUN 16 Creatinine 0.95 Glucose 114 H Calcium 8.6 Liver Function 04/21/18 Range/Units 03:38 Total Bilirubin 0.4 (0.3-1.0) mg/dL AST 28 (13-39) Units/L ALT 21 (7-52) Units/L Alkaline Phosphatase 34 (34-104) Units/L Albumin 3.5 (3.5-5.7) g/dL Consult Discharge Plan - Plan Referrals: Allie Raymond MD [Partnered Physician] - 05/23/18 9:50 am Marianne Mccurdy MD [Partnered Physician] - 05/31/18 9:10 am Mayito Serrano MD [Primary Care Provider] - 04/22/18 1:30 pm () West Thompson MD [Partnered Physician] - 05/13/18 3:30 pm - Attending Attestation I examined this patient and my medical decision-making was reviewed with the Resident Physician Dr Mccord. I agree with the documented findings, disposition and treatment plan as described except to the extent set forth below. Mr Nova is admitted with acute pancreatitis awake, sitting at bedside. family present. worsened pain after dinner last night requiring narcotic. mild pain this morning, tolerating breakfast. no feves, chills, n/v. 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 and no fluid collection or stones/obstruction He denied etoh use, tgs were in 120-130s, celine was neg and GI followed CT scan with findings concerning for necrosis vs developing pseudocyst GI has evaluated and recommended outpt EUS -increased lipase back into 400s with diet, stable today but some pain after meals- cont current diet, will ask gi see him in follow up today for further recs -has a 05/13/[address] Thompson from prior admission- would need to clarify duration of fu with GI before he leaves this admission and will need outpt EUS Constipation with recent opiate use -colace with opiates and laxative prn- cont bowel regimen, encourage ambulation Acute anemia this admission suspected to be related to aggressive ivfs, no act michael bleeding and hemodynamically stable, hgb stable HTN- cont arb, norvasc, pain control -cont to hold home atenolol given bradycardia with it, this may be reinitated outpt as needed and will noted in follow up on discharge -fu with pcp on discharge for further monitoring and management CAD- cont home asa, statin, arb, and BB can be added back as HR permits outpt further diagnoses and plan as noted by resident <Aga Mccord N - Last Filed: 04/21/18 19:22> Hospitalist Progress Note - Encounter Date of Encounter: 04/21/18 Time of Encounter: 09:09 - Subjective Interval History: Patient was seen and evaluated at the bedside. He endorses continued abdominal pain, rating his current discomfort as 2-3/10. He states that his pain did get up to 6 out of 10 last night. He states that he has not had a bowel movement since being admitted to the hospital. He denies any other acute complaints or concerns at this time. - Exam Vitals: Temp Pulse Resp BP Pulse Ox 97.2 F L 71 16 141/57 99 04/21/18 07:53 04/21/18 08:41 04/21/18 08:41 04/21/18 08:41 04/21/18 08:41 Exam: GENERAL: Pleasant elderly male in no acute distress. HEENT: Atraumatic and normocephalic. CARDIOVASCULAR: Regular rate and rhythm. S1 and S2 present. No murmurs, gallops, or rubs appreciated. RESPIRATORY: CTA bilaterally. Chest rises and falls symmetrically with respi ration. No accessory muscle use noted. GASTROINTESTINAL: Active bowel sounds present 4 quadrants. Abdomen is soft and nondistended. Patient does express tenderness to palpation over the epigastric a hodan. EXTREMITIES: No clubbing, cyanosis, or edema. NEUROLOGIC: Patient is cooperative with exam and answers questions appropriately. No apparent focal deficits. - Assessment and Plan (1) Pancreatitis Current Visit: Yes Status: Acute Assessment and Plan: Acute on chronic pancreatitis, improving Lipase remains elevated today at 427. Plan Continue pain management Per GI recommendations, patient was switched back to clear liquid diet Fluid hydration with LR at 200 mLs per hour GI to reevaluate in the morning (2) Hypertension Current Visit: Yes Status: Chronic Assessment and Plan: Amlodipine held secondary to blood pressure improvement with administration of Cozaar. We will continue to monitor and adjust as needed. (3) Hyperlipidemia Current Visit: Yes Status: Chronic Assessment and Plan: - Continue atorvastatin 40mg daily. (4) Constipation due to opioid therapy Current Visit: Yes Status: Acute Assessment and Plan: Suspected secondary to opiate-induced constipation Increased dose of senna plus twice a day (5) CAD (coronary artery disease) Current Visit: Yes Status: Acute Assessment and Plan: - Continue home medications of aspirin, atorvastatin, and losartan. DVT Prophylaxis: Subcutaneous heparin - Time Spent with Patient Total time spent is greater than 50% in coordination of care (as documented) at patient's floor/unit and/or counseling patient: Internal Medicine: Result - Labs CBC & Chem 7: 04/21/18 03:38 04/21/18 03:38 Labs: Short CBC 04/21/18 Range/Units 03:38 WBC 5.5 (4.3-11.1) K/mcL Hgb 11.3 L (12.9-16.9) g/dL Hct 32.9 L (37.5-50.1) % Plt Count 106 L (140-400) K/mcL Neutrophils # 2.9 (1.6-8.9) K/mcL BMP 04/21/18 03:38 Sodium 140 Potassium 3.5 Chloride 107 Carbon Dioxide 26 BUN 16 Creatinine 0.95 Glucose 114 H Calcium 8.6 Liver Function 04/21/18 Range/Units 03:38 Total Bilirubin 0.4 (0.3-1.0) mg/dL AST 28 (13-39) Units/L ALT 21 (7-52) Units/L Alkaline Phosphatase 34 (34-104) Units/L Albumin 3.5 (3.5-5.7) g/dL <Marija Oseguera - Last Filed: 04/21/18 10:00> (1) Pancreatitis Qualifiers: Chronicity: acute Pancreatitis type: unspecified pancreatitis type Acute pancreatitis complication: unspecified Qualified Code(s): K85.90 - Acute pancreatitis without necrosis or infection, unspecified (2) Hypertension Qualifiers: Hypertension type: unspecified Qualified Code(s): I10 - Essential (primary) hypertension (3) Hyperlipidemia Qualifiers: Hyperlipidemia type: unspecified Qualified Code(s): E78.5 - Hyperlipidemia, unspecified (5) CAD (coronary artery disease) Qualifiers: Coronary Disease-Associated Artery/Lesion type: unspecified vessel or lesion type [place] vs. transplanted heart: [place] heart Associated angina: angina presence unspecified Qualified Code(s): I25.10 - Atherosclerotic heart disease of [place] coronary artery without angina pectoris <Aga Mccord N - Last Filed: 04/21/18 19:22> (1) Pancreatitis Qualifiers: Chronicity: acute Pancreatitis type: unspecified pancreatitis type Acute pancreatitis complication: unspecified Qualified Code(s): K85.90 - Acute pancreatitis without necrosis or infection, unspecified (2) Hypertension Qualifiers: Hypertension type: unspecified Qualified Code(s): I10 - Essential (primary) hypertension (3) Hyperlipidemia Qualifiers: Hyperlipidemia type: unspecified Qualified Code(s): E78.5 - Hyperlipidemia, unspecified (5) CAD (coronary artery disease) Qualifiers: Coronary Disease-Associated Artery/Lesion type: unspecified vessel or lesion type [place] vs. transplanted heart: [place] heart Associated angina: angina presence unspecified Qualified Code(s): I25.10 - Atherosclerotic heart disease of [place] coronary artery without angina pectoris
[2018-04-21] MEDS: amLODIPine 5 MG TABLET PO SCH (10:15)
[2018-04-21] MEDS: *HR* OxyCODONE/APAP 7.5/325 TABLET PO PRN ×2 (10:59→20:19)
[2018-04-21] MEDS: Ringers Solution, Lactated 1,000 ML IVC SCH ×2 (17:14→23:08)
[2018-04-21] MEDS: Gabapentin 400 MG CAPSULE PO SCH (20:20)
[2018-04-22] MEDS: Ringers Solution, Lactated 1,000 ML IVC SCH ×4 (05:53→17:23)
[2018-04-22 06:34] LABS: Basophils % 0.4 %; Eosinophils # 0.6 K/mcL (0.0-0.6); Eosinophils % 13.1 %; Hematocrit 32.8 % (37.5-50.1); Hemoglobin 11.3 g/dL (12.9-16.9); Immature Granulocytes % 0.2 % (0-4); Lymphocytes # 1.3 K/mcL (0.6-4.6); Lymphocytes % 28.1 %; Mean Corpuscular HGB Conc 34.5 g/dL (31.6-35.5); Mean Corpuscular Hemoglobin 30.5 pg (28.0-33.3); Mean Corpuscular Volume 88.4 fL (83.0-100.0); Mean Platelet Volume 10.7 fL (9.4-12.4); Monocytes # 0.4 K/mcL (0.0-1.3); Neutrophils # 2.4 K/mcL (1.6-8.9); Platelet Count 107 K/mcL (140-400); Red Blood Count 3.71 M/mcL (4.19-5.50); Red Cell Distribution Width 13.4 % (11.5-14.5); Segmented Neutrophils % 50.2 %
[2018-04-22] MEDS: *HR* Heparin 5,000 UNIT/ML VIAL SQ SCH ×3 (06:40→21:23)
[2018-04-22 06:56] LABS: Alanine Aminotransferase 26 Units/L (7-52); Albumin 3.4 g/dL (3.5-5.7); Albumin/Globulin Ratio 1.7 (1.1-2.2); Alkaline Phosphatase 35 Units/L (34-104); Amylase 60 Units/L (29-103); Aspartate Amino Transferase 31 Units/L (13-39); BUN/Creatinine Ratio 15 (6-26); Bilirubin,Total 0.5 mg/dL (0.3-1.0); Blood Urea Nitrogen 13 mg/dL (8-23); Calcium 8.8 mg/dL (8.6-10.3); Carbon Dioxide 29 mEq/L (23-29); Chloride 107 mEq/L (98-107); Glucose 95 mg/dL (70-105); Lipase 368 Units/L (11-82); Osmolality,Calculated 292 (280-300); Potassium 3.4 mEq/L (3.5-5.1); Sodium 141 mEq/L (136-145); Total Protein 5.4 g/dL (6.4-8.9); eGFR For Non-African Americans > 60 (> 60)
--- NOTE | 2018-04-22 08:44 | Internal Med Progress Note ---
<Marija Oseguera - Last Filed: 04/22/18 12:56> Hospitalist Progress Note - Encounter Date of Encounter: 04/22/18 - Exam Vitals: Temp Pulse Resp BP Pulse Ox 97.6 F 66 16 154/74 98 04/22/18 11:40 04/22/18 11:40 04/22/18 11:40 04/22/18 11:40 04/22/18 11:40 - Assessment and Plan (1) Pancreatitis Current Visit: Yes Status: Acute (2) Hypertension Current Visit: Yes Status: Chronic (3) Hyperlipidemia Current Visit: Yes Status: Chronic (4) Constipation due to opioid therapy Current Visit: Yes Status: Acute (5) CAD (coronary artery disease) Current Visit: Yes Status: Acute - Time Spent with Patient Total time spent is greater than 50% in coordination of care (as documented) at patient's floor/unit and/or counseling patient: Internal Medicine: Result - Labs CBC & Chem 7: 04/22/18 05:32 04/22/18 05:32 Labs: Short CBC 04/22/18 Range/Units 05:32 WBC 4.7 (4.3-11.1) K/mcL Hgb 11.3 L (12.9-16.9) g/dL Hct 32.8 L (37.5-50.1) % Plt Count 107 L (140-400) K/mcL Neutrophils # 2.4 (1.6-8.9) K/mcL BMP 04/22/18 05:32 Sodium 141 Potassium 3.4 L Chloride 107 Carbon Dioxide 29 BUN 13 Creatinine 0.84 Glucose 95 Calcium 8.8 Liver Function 04/22/18 Range/Units 05:32 Total Bilirubin 0.5 (0.3-1.0) mg/dL AST 31 (13-39) Units/L ALT 26 (7-52) Units/L Alkaline Phosphatase 35 (34-104) Units/L Albumin 3.4 L (3.5-5.7) g/dL Consult Discharge Plan - Plan Referrals: Allie Raymond MD [Partnered Physician] - 05/23/18 9:50 am Marianne Mccurdy MD [Partnered Physician] - 05/31/18 9:10 am Mayito Serrano MD [Primary Care Provider] - 04/22/18 1:30 pm () West Thompson MD [Partnered Physician] - 05/13/18 3:30 pm - Attending Attestation I examined this patient and my medical decision-making was reviewed with the Resident Physician Dr Mccord. I agree with the documented findings, disposition and treatment plan as described except to the extent set forth below. Mr Nova is admitted with acute pancreatitis awake, sitting at bedside. family present. pain increased slightly to about 5/10 prior to dinner of clear liquids last night. no change in pain after dinner. 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 and no fluid collection or stones/obstruction He denied etoh use, tgs were in 120-130s, celine was neg and GI followed CT scan with findings concerning for necrosis vs developing pseudocyst GI has evaluated and recommended outpt EUS, with increased pain and lipase gi informed and will see today -lipase now down to 300s, cont clears, appreciate gi input, cont ivfs -has a 05/13/[address] Thompson from prior admission- would need to clarify duration of fu with GI before he leaves this admission and will need outpt EUS Constipation with recent opiate use -colace with opiates and laxative prn- persistent, more aggressive bowel regimen today, encourage ambulation HTN- cont arb, norvasc, pain control -re introduce atenolol at lower dose and monitor bp and HR -fu with pcp on discharge for further monitoring and management CAD- cont home asa, statin, arb, and BB further diagnoses and plan as noted by resident <Aga Mccord N - Last Filed: 04/22/18 15:25> Hospitalist Progress Note - Encounter Date of Encounter: 04/22/18 Time of Encounter: 08:44 - Subjective Interval History: Patient was seen and evaluated at the bedside. He endorses continued abdominal pain, rating his current discomfort as 4/10. He states that his pain was worse last night; however, it did improve with pain medication and he was able to sleep last night. He states that he has not had a bowel movement since being admitted to the hospital. He denies any other acute complaints or concerns at this time. - Exam Vitals: Temp Pulse Resp BP Pulse Ox 97.9 F 73 16 163/72 97 04/22/18 07:20 04/22/18 07:20 04/22/18 07:20 04/22/18 07:20 04/22/18 07:20 Exam: GENERAL: Pleasant elderly male in no acute distress. HEENT: Atraumatic and normocephalic. CARDIOVASCULAR: Regular rate and rhythm. S1 and S2 present. Systolic murmur present. RESPIRATORY: CTA bilaterally. Chest rises and falls symmetrically with respira tion. No accessory muscle use noted. GASTROINTESTINAL: Abdomen is soft and nondistended. Patient does express tenderness to palpation over the epigastric area. EXTREMITIES: No clubbing, cyanosis, or edema. NEUROLOGIC: Patient is cooperative with exam and answers questions appropriately. No apparent focal deficits. - Assessment and Plan (1) Pancreatitis Current Visit: Yes Status: Acute Assessment and Plan: Acute on chronic pancreatitis, improving Lipase remains elevated today at 368. Plan Continue pain management Per GI recommendations, patient will be continued on a clear liquid diet Fluid hydration with LR at 125 mLs per hour Appreciate GI recommendations regarding management of this problem (2) Hypertension Current Visit: Yes Status: Chronic Assessment and Plan: Patient continues to have intermittent hypertension. - Continue amlodipine and losartan - Restarted atenolol 12.5mg (3) Constipation due to opioid therapy Current Visit: Yes Status: Acute Assessment and Plan: Suspected secondary to opiate-induced constipation Increased dose of senna plus twice a day Administered miralax and dulcolax suppository today. If patient continues to be unable to have a bowel movement, will consider administration of enema. (4) Hyperlipidemia Current Visit: Yes Status: Chronic Assessment and Plan: - Continue atorvastatin 40mg daily. (5) CAD (coronary artery disease) Current Visit: Yes Status: Acute Assessment and Plan: - Continue home medications of aspirin, atorvastatin, and losartan. DVT Prophylaxis: Subcutaneous heparin - Time Spent with Patient Total time spent is greater than 50% in coordination of care (as documented) at patient's floor/unit and/or counseling patient: Internal Medicine: Result - Labs CBC & Chem 7: 04/22/18 05:32 04/22/18 05:32 Labs: Short CBC 04/22/18 Range/Units 05:32 WBC 4.7 (4.3-11.1) K/mcL Hgb 11.3 L (12.9-16.9) g/dL Hct 32.8 L (37.5-50.1) % Plt Count 107 L (140-400) K/mcL Neutrophils # 2.4 (1.6-8.9) K/mcL BMP 04/22/18 05:32 Sodium 141 Potassium 3.4 L Chloride 107 Carbon Dioxide 29 BUN 13 Creatinine 0.84 Glucose 95 Calcium 8.8 Liver Function 04/22/18 Range/Units 05:32 Total Bilirubin 0.5 (0.3-1.0) mg/dL AST 31 (13-39) Units/L ALT 26 (7-52) Units/L Alkaline Phosphatase 35 (34-104) Units/L Albumin 3.4 L (3.5-5.7) g/dL <Marija Oseguera - Last Filed: 04/22/18 12:56> (1) Pancreatitis Qualifiers: Chronicity: acute Pancreatitis type: unspecified pancreatitis type Acute pancreatitis complication: unspecified Qualified Code(s): K85.90 - Acute pancreatitis without necrosis or infection, unspecified (2) Hypertension Qualifiers: Hypertension type: unspecified Qualified Code(s): I10 - Essential (primary) hypertension (3) Hyperlipidemia Qualifiers: Hyperlipidemia type: unspecified Qualified Code(s): E78.5 - Hyperlipidemia, unspecified (5) CAD (coronary artery disease) Qualifiers: Coronary Disease-Associated Artery/Lesion type: unspecified vessel or lesion type [place] vs. transplanted heart: [place] heart Associated angina: angina presence unspecified Qualified Code(s): I25.10 - Atherosclerotic heart disease of [place] coronary artery without angina pectoris <Aga Mccord - Last Filed: 04/22/18 15:25> (1) Pancreatitis Qualifiers: Chronicity: acute Pancreatitis type: unspecified pancreatitis type Acute pancreatitis complication: unspecified Qualified Code(s): K85.90 - Acute pancreatitis without necrosis or infection, unspecified (2) Hypertension Qualifiers: Hypertension type: unspecified Qualified Code(s): I10 - Essential (primary) hypertension (4) Hyperlipidemia Qualifiers: Hyperlipidemia type: unspecified Qualified Code(s): E78.5 - Hyperlipidemia, unspecified (5) CAD (coronary artery disease) Qualifiers: Coronary Disease-Associated Artery/Lesion type: unspecified vessel or lesion type [place] vs. transplanted heart: [place] heart Associated angina: angina presence unspecified Qualified Code(s): I25.10 - Atherosclerotic heart disease of [place] coronary artery without angina pectoris
[2018-04-22] MEDS: Aspirin Enteric Coated 81 MG Tablet PO SCH (08:58)
[2018-04-22] MEDS: Sennosides/Docusate Sodium TABLET PO SCH ×2 (08:58→21:24)
[2018-04-22] MEDS: amLODIPine 5 MG TABLET PO SCH (08:59)
[2018-04-22] MEDS: *HR* OxyCODONE/APAP 7.5/325 TABLET PO PRN (09:04)
[2018-04-22] MEDS ORDERED: Bisacodyl 10 MG RECTAL SUPPOSITORY RC ONE (11:40)
--- NOTE | 2018-04-22 12:59 | Gastroenterology Progress Note ---
<Neo Piper - Last Filed: 04/22/18 12:57> Date of Encounter: 04/22/18 Time of Encounter: 10:45 - Assessment and plan (1) Acute pancreatitis Current Visit: Yes Status: Acute Assessment and plan: Lipase had decreased to 203 on 04/19 and today Lipase 368. Diet had been increased to full liquid diet, but patient did not tolerate. Diet changed back to clear liquid diet yesterday and IV fluids restarted. Pain improved today. Continue clear liquid diet and IV fluids, pain control, and anti-emetics. If symptoms worsen, change to NPO and increase IV fluids to 200 ml/hr. If he is NPO and unable to tolerate PO intake, may require [place] feeding. Plan for EUS as outpatient once inflammation resolved. - Time Spent With Patient Total time spent is greater than 50% in coordination of care (as documented) at patient's floor/unit and/or counseling patient: - Subjective Interval history: Patient continues to complain of abdominal pain. He states pain worsened with eating solid foods. - Constitutional Vitals: Temp Pulse Resp BP Pulse Ox 97.6 F 66 16 154/74 98 04/22/18 11:40 04/22/18 11:40 04/22/18 11:40 04/22/18 11:40 04/22/18 11:40 General appearance: Present: cooperative, A&O X 3, no acute distress, answers questions appropriately - Head Head exam: Present: atraumatic, normocephalic - Eye Eye exam: Present: normal appearance, sclera anicteric - ENT ENT exam: Present: mucous membranes dry - Neck Neck exam general surgery: Present: normal inspection, trachea midline - Respiratory Respiratory exam: Present: CTAB. Absent: rales, rhonchi - Cardiovascular Cardiovascular exam: Present: RRR, +S1, +S2 - GI/Abdominal GI/Abdominal exam: Present: soft, tenderness (mild epigastric), no peritoneal signs. Absent: distended, firm, guarding - Rectal Rectal exam: Present: deferred - Extremities Exam Extremities exam: Present: warm - Neurological Exam Neurological exam: Present: no focal deficits - Psychiatric Psychiatric exam: Present: normal affect, normal mood - Skin Skin exam: Present: dry, intact, normal color, warm Results - Labs CBC & Chem 7: 04/22/18 05:32 04/22/18 05:32 Labs: Last Result Calcium 8.8 mg/dL (8.6-10.3) 04/22/18 05:32 Entire Visit Hgb 11.3 g/dL (12.9-16.9) L 04/22/18 05:32 Hct 32.8 % (37.5-50.1) L 04/22/18 05:32 Total Bilirubin 0.5 mg/dL (0.3-1.0) 04/22/18 05:32 AST 31 Units/L (13-39) 04/22/18 05:32 ALT 26 Units/L (7-52) 04/22/18 05:32 Amylase 60 Units/L (29-103) 04/22/18 05:32 Lipase 368 Units/L (11-82) H 04/22/18 05:32 Consult Discharge Plan - Plan Referrals: Allie Raymond MD [Partnered Physician] - 05/23/18 9:50 am Marianne Mccurdy MD [Partnered Physician] - 05/31/18 9:10 am Mayito Serrano MD [Primary Care Provider] - 04/22/18 1:30 pm () West Thompson MD [Partnered Physician] - 05/13/18 3:30 pm <West Thompson - Last Filed: 04/22/18 15:26> Date of Encounter: 04/22/18 Time of Encounter: 13:30 - Time Spent With Patient Total time spent is greater than 50% in coordination of care (as documented) at patient's floor/unit and/or counseling patient: - Constitutional Vitals: Temp Pulse Resp BP Pulse Ox 97.6 F 66 16 154/74 98 04/22/18 11:40 04/22/18 11:40 04/22/18 11:40 04/22/18 11:40 04/22/18 11:40 Results - Labs CBC & Chem 7: 04/22/18 05:32 04/22/18 05:32 Labs: Last Result Calcium 8.8 mg/dL (8.6-10.3) 04/22/18 05:32 Entire Visit Hgb 11.3 g/dL (12.9-16.9) L 04/22/18 05:32 Hct 32.8 % (37.5-50.1) L 04/22/18 05:32 Total Bilirubin 0.5 mg/dL (0.3-1.0) 04/22/18 05:32 AST 31 Units/L (13-39) 04/22/18 05:32 ALT 26 Units/L (7-52) 04/22/18 05:32 Amylase 60 Units/L (29-103) 04/22/18 05:32 Lipase 368 Units/L (11-82) H 04/22/18 05:32 - Attending Attestation I have personally performed a face to face evaluation on this patient. I have reviewed and agree with the care plan. History and Exam by me shows: Pt seen per patient still having epigastric pain examination does has epigastric tenderness. A: Acute pancreatitis still having epigastric pain requiring pain medication. Recommendation: CT with IV contrast today to rule out any local complication of acute pancreatitis
[2018-04-22] MEDS: Gabapentin 400 MG CAPSULE PO SCH (21:24)
[2018-04-23] MEDS: *HR* Heparin 5,000 UNIT/ML VIAL SQ SCH ×3 (06:32→22:06)
[2018-04-23 06:51] LABS: Basophils % 0.4 %; Eosinophils # 0.7 K/mcL (0.0-0.6); Eosinophils % 14.1 %; Hematocrit 34.5 % (37.5-50.1); Immature Granulocytes % 0.2 % (0-4); Lymphocytes # 1.2 K/mcL (0.6-4.6); Lymphocytes % 23.4 %; Mean Corpuscular HGB Conc 34.8 g/dL (31.6-35.5); Mean Corpuscular Hemoglobin 30.8 pg (28.0-33.3); Mean Corpuscular Volume 88.7 fL (83.0-100.0); Mean Platelet Volume 10.4 fL (9.4-12.4); Monocytes # 0.5 K/mcL (0.0-1.3); Monocytes % 8.9 %; Neutrophils # 2.8 K/mcL (1.6-8.9); Platelet Count 130 K/mcL (140-400); Red Blood Count 3.89 M/mcL (4.19-5.50); Red Cell Distribution Width 13.4 % (11.5-14.5)
[2018-04-23 07:12] LABS: Alanine Aminotransferase 36 Units/L (7-52); Albumin 3.6 g/dL (3.5-5.7); Albumin/Globulin Ratio 1.6 (1.1-2.2); Alkaline Phosphatase 39 Units/L (34-104); Aspartate Amino Transferase 37 Units/L (13-39); BUN/Creatinine Ratio 9 (6-26); Bilirubin,Total 0.6 mg/dL (0.3-1.0); Blood Urea Nitrogen 8 mg/dL (8-23); Carbon Dioxide 30 mEq/L (23-29); Chloride 106 mEq/L (98-107); Globulin 2.2 g/dL (2.4-3.5); Glucose 103 mg/dL (70-105); Lipase 298 Units/L (11-82); Osmolality,Calculated 291 (280-300); Potassium 3.7 mEq/L (3.5-5.1); Sodium 141 mEq/L (136-145); Total Protein 5.8 g/dL (6.4-8.9); eGFR For Non-African Americans > 60 (> 60)
[2018-04-23] MEDS: amLODIPine 5 MG TABLET PO SCH (08:58)
[2018-04-23] MEDS: Aspirin Enteric Coated 81 MG Tablet PO SCH (08:58)
[2018-04-23] MEDS ORDERED: Isovue-370 500 ML BOTTLE IVP ONE (08:59)
--- NOTE | 2018-04-23 09:00 | Internal Med Progress Note ---
<Aga Mccord N - Last Filed: 04/23/18 19:32> Hospitalist Progress Note - Encounter Date of Encounter: 04/23/18 Time of Encounter: 09:00 - Subjective Interval History: Patient was seen and evaluated at the bedside. He endorses improvement in his abdominal pain, and states that he did not require analgesics last night, though he does not worsening of his abdominal pain after eating. He denies any other acute complaints or concerns at this time. - Exam Vitals: Temp Pulse Resp BP Pulse Ox 97.6 F 61 16 163/75 99 04/23/18 07:11 04/23/18 07:11 04/23/18 07:11 04/23/18 07:11 04/23/18 07:11 Exam: GENERAL: Pleasant elderly male in no acute distress. HEENT: Atraumatic and normocephalic. CARDIOVASCULAR: Regular rate and rhythm. S1 and S2 present. Systolic murmur present. RESPIRATORY: CTA bilaterally. Chest rises and falls symmetrically with respiration. No accessory muscle use noted. GASTROINTESTINAL: Abdomen is soft and nondistended. Patient is mildly tender over the epigastric area. EXTREMITIES: No clubbing, cyanosis, or edema. NEUROLOGIC: Patient is cooperative with exam and answers questions appropriately. No apparent focal deficits. - Assessment and Plan (1) Pancreatitis Current Visit: Yes Status: Acute Assessment and Plan: Acute on chronic pancreatitis, improving Lipase improved today, though still elevated Repeat CT today demonstrated no new acute abnormalities Plan Continue pain management Per GI recommendations, patient will be continued on a clear liquid diet Fluid hydration with LR at 125 mLs per hour Appreciate GI recommendations regarding management of this problem (2) Hypertension Current Visit: Yes Status: Chronic Assessment and Plan: Patient continues to have intermittent hypertension, though his pressures appear to be more well-controlled today. - Continue amlodipine, atenolol, and losartan (3) Hyperlipidemia Current Visit: Yes Status: Chronic Assessment and Plan: - Continue atorvastatin 40mg daily. (4) Constipation due to opioid therapy Current Visit: Yes Status: Acute Assessment and Plan: Suspected secondary to opiate-induced constipation Increased dose of senna plus twice a day Patient recieved miralax today, and order was placed for administration of enema this afternoon. (5) CAD (coronary artery disease) Current Visit: Yes Status: Acute Assessment and Plan: - Continue home medications of aspirin, atorvastatin, and losartan. DVT Prophylaxis: Subcutaneous heparin - Time Spent with Patient Total time spent is greater than 50% in coordination of care (as documented) at patient's floor/unit and/or counseling patient: Internal Medicine: Result - Labs CBC & Chem 7: 04/23/18 06:28 04/23/18 06:28 Labs: Short CBC 04/23/18 Range/Units 06:28 WBC 5.2 (4.3-11.1) K/mcL Hgb 12.0 L (12.9-16.9) g/dL Hct 34.5 L (37.5-50.1) % Plt Count 130 L (140-400) K/mcL Neutrophils # 2.8 (1.6-8.9) K/mcL BMP 04/23/18 06:28 Sodium 141 Potassium 3.7 Chloride 106 Carbon Dioxide 30 H BUN 8 Creatinine 0.85 Glucose 103 Calcium 9.0 Liver Function 04/23/18 Range/Units 06:28 Total Bilirubin 0.6 (0.3-1.0) mg/dL AST 37 (13-39) Units/L ALT 36 (7-52) Units/L Alkaline Phosphatase 39 (34-104) Units/L Albumin 3.6 (3.5-5.7) g/dL Consult Discharge Plan - Plan Referrals: Allie Raymond MD [Partnered Physician] - 05/23/18 9:50 am Marianne Mccurdy MD [Partnered Physician] - 05/31/18 9:10 am Mayito eSrrano MD [Primary Care Provider] - 04/22/18 1:30 pm () West Thompson MD [Partnered Physician] - 05/13/18 3:30 pm <Goldie Lang - Last Filed: 04/23/18 19:42> Hospitalist Progress Note - Encounter Date of Encounter: 04/23/18 - Exam Vitals: Temp Pulse Resp BP Pulse Ox 97.8 F 81 16 136/73 96 04/23/18 18:38 04/23/18 18:38 04/23/18 18:38 04/23/18 18:38 04/23/18 18:38 - Assessment and Plan (1) Pancreatitis Current Visit: Yes Status: Acute (2) Hypertension Current Visit: Yes Status: Chronic (3) Hyperlipidemia Current Visit: Yes Status: Chronic (4) Constipation due to opioid therapy Current Visit: Yes Status: Acute (5) CAD (coronary artery disease) Current Visit: Yes Status: Acute - Time Spent with Patient Total time spent is greater than 50% in coordination of care (as documented) at patient's floor/unit and/or counseling patient: Internal Medicine: Result - Labs CBC & Chem 7: 04/23/18 06:28 04/23/18 06:28 Labs: Short CBC 04/23/18 Range/Units 06:28 WBC 5.2 (4.3-11.1) K/mcL Hgb 12.0 L (12.9-16.9) g/dL Hct 34.5 L (37.5-50.1) % Plt Count 130 L (140-400) K/mcL Neutrophils # 2.8 (1.6-8.9) K/mcL BMP 04/23/18 06:28 Sodium 141 Potassium 3.7 Chloride 106 Carbon Dioxide 30 H BUN 8 Creatinine 0.85 Glucose 103 Calcium 9.0 Liver Function 04/23/18 Range/Units 06:28 Total Bilirubin 0.6 (0.3-1.0) mg/dL AST 37 (13-39) Units/L ALT 36 (7-52) Units/L Alkaline Phosphatase 39 (34-104) Units/L Albumin 3.6 (3.5-5.7) g/dL - Impressions Impressions Abdomen/Pelvis CT 04/23/18 08:59 IMPRESSION: 1. Persistent peripancreatic free fluid and inflammatory changes compatible with the provided history of pancreatitis. Redemonstration of a hypodense region in the pancreatic head measuring 10 x 9 mm, unchanged since 04/16/2018. Finding may represent sequela of acute pancreatitis. Underlying malignancy would be difficult to entirely exclude; however, no associated ductal dilatation or pancreatic atrophy is appreciated. 2. Status post cholecystectomy and Karson fundoplication. 3. Severe atherosclerosis. D/ / 04/23/2018 10:35:52 Selma Ocampo MD / [place] Interpreting Provider: Selma Ocampo MD - Attending Attestation I examined this patient and my medical decision-making was reviewed with the Resident Physician. I agree with the documented findings, disposition and treatment plan as described except to the extent set forth below. <Aga Mccord - Last Filed: 04/23/18 19:32> (1) Pancreatitis Qualifiers: Chronicity: acute Pancreatitis type: unspecified pancreatitis type Acute pancreatitis complication: unspecified Qualified Code(s): K85.90 - Acute pancreatitis without necrosis or infection, unspecified (2) Hypertension Qualifiers: Hypertension type: unspecified Qualified Code(s): I10 - Essential (primary) hypertension (3) Hyperlipidemia Qualifiers: Hyperlipidemia type: unspecified Qualified Code(s): E78.5 - Hyperlipidemia, unspecified (5) CAD (coronary artery disease) Qualifiers: Coronary Disease-Associated Artery/Lesion type: unspecified vessel or lesion type [place] vs. transplanted heart: [place] heart Associated angina: angina presence unspecified Qualified Code(s): I25.10 - Atherosclerotic heart disease of [place] coronary artery without angina pectoris <Goldie Lang - Last Filed: 04/23/18 19:42> (1) Pancreatitis Qualifiers: Chronicity: acute Pancreatitis type: unspecified pancreatitis type Acute pancreatitis complication: unspecified Qualified Code(s): K85.90 - Acute pancreatitis without necrosis or infection, unspecified (2) Hypertension Qualifiers: Hypertension type: unspecified Qualified Code(s): I10 - Essential (primary) hypertension (3) Hyperlipidemia Qualifiers: Hyperlipidemia type: unspecified Qualified Code(s): E78.5 - Hyperlipidemia, unspecified (5) CAD (coronary artery disease) Qualifiers: Coronary Disease-Associated Artery/Lesion type: unspecified vessel or lesion type [place] vs. transplanted heart: [place] heart Associated angina: angina presence unspecified Qualified Code(s): I25.10 - Atherosclerotic heart disease of [place] coronary artery without angina pectoris
[2018-04-23] MEDS: Sennosides/Docusate Sodium TABLET PO SCH ×2 (09:04→22:06)
[2018-04-23] MEDS: Ringers Solution, Lactated 1,000 ML IVC SCH ×2 (09:04)
--- NOTE | 2018-04-23 11:45 | Discharge Summary ---
<Aga Mccord N - Last Filed: 04/24/18 16:15> - NOTES TO OUTPATIENT PROVIDER Notes to Outpatient Provider: Patient presented with acute on chronic pancreatitis with severe abdominal pain. He was discharged after several days of pain medications and improvement in symptoms. He is to continue a clear liquid diet for several more days and then begin slow advancement of diet as tolerated. Date of Encounter: 04/24/18 Time of Encounter: 11:45 - Discharge Diagnosis (1) Pancreatitis Priority: Primary Status: Acute Qualifiers: Chronicity: acute Pancreatitis type: unspecified pancreatitis type Acute pancreatitis complication: unspecified Qualified Code(s): K85.90 - Acute pancreatitis without necrosis or infection, unspecified (2) Hypertension Priority: Secondary Status: Chronic Qualifiers: Hypertension type: unspecified Qualified Code(s): I10 - Essential (primary) hypertension (3) Hyperlipidemia Priority: Secondary Status: Chronic Qualifiers: Hyperlipidemia type: unspecified Qualified Code(s): E78.5 - Hyperlipidemia, unspecified (4) Constipation due to opioid therapy Priority: Secondary Status: Acute (5) CAD (coronary artery disease) Priority: Secondary Status: Acute Qualifiers: Coronary Disease-Associated Artery/Lesion type: unspecified vessel or lesion type [place] vs. transplanted heart: [place] heart Associated angina: angina presence unspecified Qualified Code(s): I25.10 - Atherosclerotic heart disease of [place] coronary artery without angina pectoris Hospital course: Mr. Nova is a 82 year old male with a history of hypertension, hyperlipidemia, and coronary artery disease who presented to the ED complaining of abdominal pain on 04/16/2018. Patient was recently hospitalized for similar complaints, with discharge from [facility] on 04/06/2018. During that admission, he was found to have acute pancreatitis secondary to an undetermined etiology. Patient states that since going home, his pain has persisted, despite opioid analgesics. He rated his pain as 8/10, and stated that the pain only improved to 7/10 after receiving analgesics in the ED. Patient reported that his pain is normally about 8/10 in severity. He stated that his pain is mainly epigastric in location, with lateral radiation. He denied any aggravating or alleviating factors. Patient also reported recent constipation secondary to use of opioid analgesics. He did have an bowel movement while in the ED, with his last bowel movement having been approximately 3 days prior. He states that he did not have to take a laxative in order to this bowel movement today. He denies any nausea or vomiting. Patient had been able to tolerate some oral intake while at home. He denied any fevers, chills, or other systemic signs of infection. Abdominal CT demonstrated developing hypoattenuation of the pancreatic head concerning for products of necrosis following acute pancreatitis, as well as persistent findings of acute pancreatitis predominately about the pancreatic head and neck. Patient was started on IV fluid hydration and made NPO pending GI evaluation. GI as400 consultant recommended against any acute intervention, and conservative management was recommended due to low suspicion for pancreatic necrosis. Patient was started on clear liquid diet, which he tolerated well; however, he reported return of his abdominal pain with advancement of his diet, with associated increase in serum lipase. Patient was changed back to clear liquid diet, and had improvement of his pain over several days with consistent decrease in lipase. Patient was discharged with recommendation to continue clear liquid diet for the next several days, then begin advancing his diet slowly as tolerated. Patient's BP medications were adjusted during this admission secondary to intermittent hypertension. He was discharged on cozaar 100mg, norvasc 10mg, and atenolol 25mg daily. He was also discharged with a prescription for a 3-day supply of percocet 5mg per GI recommendations. Discharge discussed with: patient, family, nurse - Time Spent with Patient Total time spent providing and/or coordinating discharge services: - Discharge Medications Prescriptions: OxyCODONE/APAP 5/325 [Percocet 5/325 MG] 1 each PO Q6HR PRN 3 Days #12 tablet PRN Reason: Pain amLODIPine [Norvasc] 10 mg PO DAILY #30 tablet Atenolol [Tenormin] 12.5 mg PO DAILY #30 tablet Sennosides/Docusate Sodium [Senna Plus] 2 each PO BID #60 tablet Home Medications: ALPRAZolam [Xanax 0.5 MG Tablet] 0.5 mg PO DAILY 04/03/18 [History] Aspirin [Lo-Dose Aspirin EC] 81 mg PO QPM 04/03/18 [History] Atorvastatin [Lipitor] 40 mg PO DAILY 04/03/18 [History] Gabapentin [Neurontin] 400 mg PO HS 04/03/18 [History] Loratadine [Claritin] 10 mg PO DAILY 04/03/18 [History] Losartan Potassium [Cozaar] 100 mg PO QAM 04/03/18 [History] Biotin [Kehinde Biotin] 10,000 mcg PO DAILY 04/17/18 [History] Atenolol [Tenormin] 12.5 mg PO DAILY #30 tablet 04/24/18 [Rx] OxyCODONE/APAP 5/325 [Percocet 5/325 MG] 1 each PO Q6HR PRN 3 Days #12 tablet 04/24/18 [Rx] Sennosides/Docusate Sodium [Senna Plus] 2 each PO BID #60 tablet 04/24/18 [Rx] amLODIPine [Norvasc] 10 mg PO DAILY #30 tablet 04/24/18 [Rx] Allergies/Adverse Reactions: Allergy/AdvReac Type Severity Reaction Status Date / Time No Known Allergies Allergy Verified 04/02/18 23:37 Date of admission: 04/19/18 15:17 Primary care physician: Mayito Serrano MD Consults: 04/17/18 03:49 Consult to Gastroenterology [CONS] Routine Consulting Provider: Gastroenterology Zunilda Reason for Consult: Pancreatic necrosis following acute pancreatitis Call Completed: No Discharging clinician: Aga Mccord Anticipated date of discharge: 04/24/18 - Constitutional Vitals: Temp Pulse Resp BP Pulse Ox 97.7 F 61 16 165/74 97 04/23/18 11:06 04/23/18 11:06 04/23/18 11:06 04/23/18 11:06 04/23/18 11:06 Exam: GENERAL: Pleasant elderly male in no acute distress. HEENT: Atraumatic and normocephalic. NECK: No JVD or lymphadenopathy. CARDIOVASCULAR: Regular rate and rhythm. S1 and S2 present. Systolic murmur present. RESPIRATORY: CTA bilaterally. Chest rises and falls symmetrically with respiration. No accessory muscle use noted. GASTROINTESTINAL: Abdomen is soft and nondistended. Patient is not tender to palpation. EXTREMITIES: No clubbing, cyanosis, or edema. NEUROLOGIC: Patient is cooperative with exam and answers questions appropriately. No apparent focal deficits. SKIN: Warm, dry, and intact. PSYCHIATRIC: Appropriate mood and affect. - Patient Status Disposition: Home, Self-Care Condition: Fair Functional capacity at discharge: independent ambulation Overall status at discharge: patient is progressing back to baseline - Discharge Instructions Instructions: Atenolol (By mouth), Oxycodone/Acetaminophen (By mouth), Laxative, Stimulant (By mouth), Amlodipine (By mouth), Pancreatitis (DC), Pa ncreatitis (GEN) Follow Up With: Allie Raymond MD [Partnered Physician] - 05/23/18 9:50 am Marianne Mccurdy MD [Partnered Physician] - 05/31/18 9:10 am Mayito Serrano MD [Primary Care Provider] - 04/29/18 10:45 am () West Thompson MD [Partnered Physician] - 05/13/18 3:30 pm Additional Instructions: Follow up with you PCP in 3-5 days. Follow up with GI as follows. Continue taking home medications; however, your blood pressure medications have been changed. Take your blood pressure medications as follows: amlodipine 10mg daily, atenolol 12.5mg daily, and cozaar 100mg daily. Take percocet 5mg every 6 hours as needed for severe abdominal pain. Continue consuming a clear liquid diet for the next few days, then you may be able to advance your diet slowly as tolerated. Return to the ED if symptoms recur or if new complaints or concerns arise. - Diet and Activity Activity: increase activity as tolerated, resume usual activities as tolerated Diet: regular diet <Goldie Lang - Last Filed: 04/24/18 21:49> Orders not resulted at time of discharge: Pending orders 04/24/18 03:38 Cancer Antigen-GI (CA 19-9) AM 0400 Date of Encounter: 04/24/18 - Discharge Diagnosis (1) Pancreatitis Status: Acute Qualifiers: Chronicity: acute Pancreatitis type: unspecified pancreatitis type Acute pancreatitis complication: unspecified Qualified Code(s): K85.90 - Acute pancreatitis without necrosis or infection, unspecified (2) Hypertension Status: Chronic Qualifiers: Hypertension type: unspecified Qualified Code(s): I10 - Essential (primary) hypertension (3) Hyperlipidemia Status: Chronic Qualifiers: Hyperlipidemia type: unspecified Qualified Code(s): E78.5 - Hyperlipidemia, unspecified (4) Constipation due to opioid therapy Status: Acute (5) CAD (coronary artery disease) Status: Acute Qualifiers: Coronary Disease-Associated Artery/Lesion type: unspecified vessel or lesion type [place] vs. transplanted heart: [place] heart Associated angina: angina presence unspecified Qualified Code(s): I25.10 - Atherosclerotic heart disease of [place] coronary artery without angina pectoris Hospital course: Mr. Nova is a 82 year old male - Time Spent with Patient Total time spent providing and/or coordinating discharge services: Date of admission: 04/19/18 15:17 Primary care physician: Mayito Serrano MD Consults: 04/17/18 03:49 Consult to Gastroenterology [CONS] Routine Consulting Provider: Gastroenterology Zunilda Reason for Consult: Pancreatic necrosis following acute pancreatitis Call Completed: No - Constitutional Vitals: Temp Pulse Resp BP Pulse Ox 97.7 F 86 16 145/75 98 04/24/18 11:50 04/24/18 11:50 04/24/18 11:50 04/24/18 11:50 04/24/18 11:50 - Attending Attestation I examined this patient and my medical decision-making was reviewed with the Resident Physician. I agree with the documented findings, disposition and treatment plan as described except to the extent set forth below.
--- NOTE | 2018-04-23 12:08 | Gastroenterology Progress Note ---
<Neo Piper - Last Filed: 04/23/18 12:06> Date of Encounter: 04/23/18 Time of Encounter: 10:20 - Assessment and plan (1) Acute pancreatitis Current Visit: Yes Status: Acute Assessment and plan: Lipase 298 today. Patient is tolerating clear liquid diet. Continue clear liquid diet, pain control, and anti-emetics. Consider advancing diet if pain is controlled and he is tolerating current diet. CT A/P shows persistent peripancreatic free fluid and inflammatory changes compatible with the provided history of pancreatitis. Redemonstration of a hypodense region in the pancreatic head measuring 10 x 9 mm If symptoms worsen, change to NPO and start IV fluids at 200 ml/hr. If he is NPO and unable to tolerate PO intake, may require [place] feeding. Plan for EUS as outpatient once inflammation resolved. Qualifiers: Pancreatitis type: unspecified pancreatitis type Acute pancreatitis complication: no infection or necrosis Qualified Code(s): K85.90 - Acute pancreatitis without necrosis or infection, unspecified - Time Spent With Patient Total time spent is greater than 50% in coordination of care (as documented) at patient's floor/unit and/or counseling patient: - Subjective Interval history: Patient reports continued abdominal pain, but states the pain has improved compared to yesterday. He is continuing to require pain medication. He is tolerating clear liquid diet well. He reports no BM since admission. - Constitutional Vitals: Temp Pulse Resp BP Pulse Ox 97.7 F 61 16 165/74 97 04/23/18 11:06 04/23/18 11:06 04/23/18 11:06 04/23/18 11:06 04/23/18 11:06 General appearance: Present: cooperative, A&O X 3, no acute distress, answers questions appropriately - Head Head exam: Present: atraumatic, normocephalic - Eye Eye exam: Present: normal appearance, sclera anicteric - ENT ENT exam: Present: mucous membranes moist - Neck Neck exam general surgery: Present: normal inspection, trachea midline - Respiratory Respiratory exam: Present: CTAB. Absent: rales, rhonchi - Cardiovascular Cardiovascular exam: Present: RRR, +S1, +S2 - GI/Abdominal GI/Abdominal exam: Present: soft, tenderness (epigastric), no peritoneal signs. Absent: distended, firm, guarding - Rectal Rectal exam: Present: deferred - Extremities Exam Extremities exam: Present: warm - Neurological Exam Neurological exam: Present: no focal deficits - Psychiatric Psychiatric exam: Present: normal affect, normal mood - Skin Skin exam: Present: dry, intact, normal color, warm Results - Labs CBC & Chem 7: 04/23/18 06:28 04/23/18 06:28 Labs: Last Result Calcium 9.0 mg/dL (8.6-10.3) 04/23/18 06:28 Entire Visit Hgb 12.0 g/dL (12.9-16.9) L 04/23/18 06:28 Hct 34.5 % (37.5-50.1) L 04/23/18 06:28 Total Bilirubin 0.6 mg/dL (0.3-1.0) 04/23/18 06:28 AST 37 Units/L (13-39) 04/23/18 06:28 ALT 36 Units/L (7-52) 04/23/18 06:28 Amylase 60 Units/L (29-103) 04/22/18 05:32 Lipase 298 Units/L (11-82) H 04/23/18 06:28 - Impressions Impressions Abdomen/Pelvis CT 04/23/18 08:59 IMPRESSION: 1. Persistent peripancreatic free fluid and inflammatory changes compatible with the provided history of pancreatitis. Redemonstration of a hypodense region in the pancreatic head measuring 10 x 9 mm, unchanged since 04/16/2018. Finding may represent sequela of acute pancreatitis. Underlying malignancy would be difficult to entirely exclude; however, no associated ductal dilatation or pancreatic atrophy is appreciated. 2. Status post cholecystectomy and Karson fundoplication. 3. Severe atherosclerosis. D/ / 04/23/2018 10:35:52 Selma Ocampo MD / [facility] Interpreting Provider: Selma Ocampo MD Consult Discharge Plan - Plan Referrals: Allie Raymond MD [Partnered Physician] - 05/23/18 9:50 am Marianne Mccurdy MD [Partnered Physician] - 05/31/18 9:10 am Mayito Serrano MD [Primary Care Provider] - 04/22/18 1:30 pm () West Thompson MD [Partnered Physician] - 05/13/18 3:30 pm <West Thompson - Last Filed: 04/23/18 17:21> Date of Encounter: 04/23/18 Time of Encounter: 14:00 - Time Spent With Patient Total time spent is greater than 50% in coordination of care (as documented) at patient's floor/unit and/or counseling patient: - Constitutional Vitals: Temp Pulse Resp BP Pulse Ox 97.5 F L 63 16 126/72 99 04/23/18 15:23 04/23/18 15:23 04/23/18 15:23 04/23/18 15:23 04/23/18 15:23 Results - Labs CBC & Chem 7: 04/23/18 06:28 04/23/18 06:28 Labs: Last Result Calcium 9.0 mg/dL (8.6-10.3) 04/23/18 06:28 Entire Visit Hgb 12.0 g/dL (12.9-16.9) L 04/23/18 06:28 Hct 34.5 % (37.5-50.1) L 04/23/18 06:28 Total Bilirubin 0.6 mg/dL (0.3-1.0) 04/23/18 06:28 AST 37 Units/L (13-39) 04/23/18 06:28 ALT 36 Units/L (7-52) 04/23/18 06:28 Amylase 60 Units/L (29-103) 04/22/18 05:32 Lipase 298 Units/L (11-82) H 04/23/18 06:28 - Impressions Impressions Abdomen/Pelvis CT 04/23/18 08:59 IMPRESSION: 1. Persistent peripancreatic free fluid and inflammatory changes compatible with the provided history of pancreatitis. Redemonstration of a hypodense region in the pancreatic head measuring 10 x 9 mm, unchanged since 04/16/2018. Finding may represent sequela of acute pancreatitis. Underlying malignancy would be difficult to entirely exclude; however, no associated ductal dilatation or pancreatic atrophy is appreciated. 2. Status post cholecystectomy and Karson fundoplication. 3. Severe atherosclerosis. D/ / 04/23/2018 10:35:52 Selma Ocampo MD / [facility] Interpreting Provider: Selma Ocampo MD - Attending Attestation I have personally performed a face to face evaluation on this patient. I have reviewed and agree with the care plan. History and Exam by me shows: Patient seen per patient pain is better than when he was admitted but still has pain . examination: Abdominal epigastric tenderness is better than yesterday. Assessment: Patient with the Pancreatitis. Recommendation: IV fluid pain management clear liquid and advance slowly as tolerated plan is for EUS as an outpatient in about 2 months but patient will have a CT scan done with contrast in 4 weeks to make sure the pancreatitis is resolving
[2018-04-23] MEDS: Gabapentin 400 MG CAPSULE PO SCH (22:06)
[2018-04-24 04:34] LABS: Basophils % 0.2 %; Eosinophils # 0.6 K/mcL (0.0-0.6); Eosinophils % 12.1 %; Hematocrit 34.9 % (37.5-50.1); Hemoglobin 12.1 g/dL (12.9-16.9); Immature Granulocytes % 0.2 % (0-4); Lymphocytes # 1.4 K/mcL (0.6-4.6); Lymphocytes % 26.2 %; Mean Corpuscular HGB Conc 34.7 g/dL (31.6-35.5); Mean Corpuscular Hemoglobin 30.8 pg (28.0-33.3); Mean Corpuscular Volume 88.8 fL (83.0-100.0); Mean Platelet Volume 11.7 fL (9.4-12.4); Monocytes # 0.5 K/mcL (0.0-1.3); Monocytes % 9.6 %; Neutrophils # 2.7 K/mcL (1.6-8.9); Platelet Count 128 K/mcL (140-400); Red Blood Count 3.93 M/mcL (4.19-5.50); Red Cell Distribution Width 13.3 % (11.5-14.5); Segmented Neutrophils % 51.7 %
[2018-04-24 04:59] LABS: Alanine Aminotransferase 37 Units/L (7-52); Albumin 3.7 g/dL (3.5-5.7); Albumin/Globulin Ratio 1.7 (1.1-2.2); Alkaline Phosphatase 40 Units/L (34-104); Amylase 50 Units/L (29-103); Aspartate Amino Transferase 34 Units/L (13-39); BUN/Creatinine Ratio 8 (6-26); Bilirubin,Total 0.6 mg/dL (0.3-1.0); Blood Urea Nitrogen 7 mg/dL (8-23); Calcium 8.8 mg/dL (8.6-10.3); Carbon Dioxide 26 mEq/L (23-29); Chloride 105 mEq/L (98-107); Chol/HDL Ratio 2.9 (0-4.9); Globulin 2.2 g/dL (2.4-3.5); Glucose 109 mg/dL (70-105); Osmolality,Calculated 289 (280-300); Potassium 3.5 mEq/L (3.5-5.1); Sodium 140 mEq/L (136-145); Total Protein 5.9 g/dL (6.4-8.9); eGFR For Non-African Americans > 60 (> 60)
[2018-04-24] MEDS: *HR* Heparin 5,000 UNIT/ML VIAL SQ SCH ×2 (05:40→13:35)
--- NOTE | 2018-04-24 08:20 | Internal Med Progress Note ---
Hospitalist Progress Note - Encounter Date of Encounter: 04/24/18 Time of Encounter: 08:19 - Subjective Interval History: Patient was seen and evaluated at the bedside. He endorses improvement in his abdominal pain, and states that he did not require analgesics last night, though he does not worsening of his abdominal pain after eating. He denies any other acute complaints or concerns at this time. - Exam Vitals: Temp Pulse Resp BP Pulse Ox 97.4 F L 65 16 98/60 98 04/24/18 07:38 04/24/18 07:38 04/24/18 07:38 04/24/18 07:38 04/24/18 07:38 - Assessment and Plan (1) Pancreatitis Current Visit: Yes Status: Acute (2) Hypertension Current Visit: Yes Status: Chronic (3) Hyperlipidemia Current Visit: Yes Status: Chronic (4) Constipation due to opioid therapy Current Visit: Yes Status: Acute (5) CAD (coronary artery disease) Current Visit: Yes Status: Acute - Time Spent with Patient Total time spent is greater than 50% in coordination of care (as documented) at patient's floor/unit and/or counseling patient: Internal Medicine: Result - Labs CBC & Chem 7: 04/24/18 03:38 04/24/18 03:38 Labs: Short CBC 04/24/18 Range/Units 03:38 WBC 5.3 (4.3-11.1) K/mcL Hgb 12.1 L (12.9-16.9) g/dL Hct 34.9 L (37.5-50.1) % Plt Count 128 L (140-400) K/mcL Neutrophils # 2.7 (1.6-8.9) K/mcL BMP 04/24/18 03:38 Sodium 140 Potassium 3.5 Chloride 105 Carbon Dioxide 26 BUN 7 L Creatinine 0.90 Glucose 109 H Calcium 8.8 Liver Function 04/24/18 Range/Units 03:38 Total Bilirubin 0.6 (0.3-1.0) mg/dL AST 34 (13-39) Units/L ALT 37 (7-52) Units/L Alkaline Phosphatase 40 (34-104) Units/L Albumin 3.7 (3.5-5.7) g/dL - Impressions Impressions Abdomen/Pelvis CT 04/23/18 08:59 IMPRESSION: 1. Persistent peripancreatic free fluid and inflammatory changes compatible with the provided history of pancreatitis. Redemonstration of a hypodense region in the pancreatic head measuring 10 x 9 mm, unchanged since 04/16/2018. Finding may represent sequela of acute pancreatitis. Underlying malignancy would be difficult to entirely exclude; however, no associated ductal dilatation or pancreatic atrophy is appreciated. 2. Status post cholecystectomy and Karson fundoplication. 3. Severe atherosclerosis. D/ / 04/23/2018 10:35:52 Selma Ocampo MD / [facility] Interpreting Provider: Selma Ocampo MD Consult Discharge Plan - Plan Referrals: Allie Raymond MD [Partnered Physician] - 05/23/18 9:50 am Marianne Mccurdy MD [Partnered Physician] - 05/31/18 9:10 am Mayito Serrano MD [Primary Care Provider] - 04/22/18 1:30 pm () West Thompson MD [Partnered Physician] - 05/13/18 3:30 pm (1) Pancreatitis Qualifiers: Chronicity: acute Pancreatitis type: unspecified pancreatitis type Acute pancreatitis complication: unspecified Qualified Code(s): K85.90 - Acute pancreatitis without necrosis or infection, unspecified (2) Hypertension Qualifiers: Hypertension type: unspecified Qualified Code(s): I10 - Essential (primary) hypertension (3) Hyperlipidemia Qualifiers: Hyperlipidemia type: unspecified Qualified Code(s): E78.5 - Hyperlipidemia, unspecified (5) CAD (coronary artery disease) Qualifiers: Coronary Disease-Associated Artery/Lesion type: unspecified vessel or lesion type [place] vs. transplanted heart: [place] heart Associated angina: angina presence unspecified Qualified Code(s): I25.10 - Atherosclerotic heart disease of [place] coronary artery without angina pectoris
[2018-04-24] MEDS: amLODIPine 5 MG TABLET PO SCH (08:31)
[2018-04-24 08:35] LABS: Lipase 265 Units/L (11-82)
[2018-04-24] MEDS: Aspirin Enteric Coated 81 MG Tablet PO SCH (08:39)
[2018-04-24] MEDS: Sennosides/Docusate Sodium TABLET PO SCH (08:39)
[2018-04-24 11:55] VITALS: BP 145/75
== END 2018-04-24 15:47 | disposition home or self-care (01) | DRG 440 ==
LOC: 3BNU 11:30 → EMEROOARM 11:30 → INTOOBSV 15:35 → OBSVTOIN 15:35 → SUATTDRO 15:35 → 3BNU 16:37 → SUATTDRO 04-19 15:17
PROVIDERS: ADMIT Hospitalist; ATTEND Student in an Organized Health Care Education/Training Program